=== PATIENT | female | born 1930 | race Caucasian/White ===

== ENCOUNTER 2017-03-08 05:57 | Day surgery (SDC) | payer OTHER ==
[2017-03-03 13:28] VITALS: BMI 32.8
[2017-03-08 07:05] VITALS: TEMP 97.9
--- NOTE | 2017-03-08 07:42 | HP ---
Admitting History and Physical - Admission History of Present Illness: patient is a 86 y/o female with a past medical history of CAD, HTN, HLD, hypothyroidism, depression, and anxiety. Patient presents for ect, her last ect was last week at [facility]. She was recently admitted to [facility] for 6 weeks in which she had 16 ect treatmemts. She reports significant relief of depressive symptoms since starting ect. Patient denies any suicidal or homicidal ideation, visual or auditory hallucinations. History Source: Patient Limitations to Obtaining History: No Limitations - Past Medical History Cardiovascular: Yes: CAD, HTN, Hyperlipdemia Psych: Yes: Depression Endocrine: Yes: Hypothyroidism - Advance Directives Advance Directives: Yes: Living Will, Health Care Proxy - Smoking History Smoking history: Never smoked Have you smoked in the past 12 months: No - Alcohol/Substance Use Hx Alcohol Use: Yes (RARE) History of Substance Use: reports: None - Social History Usual Living Arrangement: Yes: With Spouse ADL: Independent History of Recent Travel: No Home Medications - Allergies Allergies/Adverse Reactions: Allergies Allergy/AdvReac Type Severity Reaction Status Date / Time No Known Drug Allergies Allergy Verified 03/03/17 12:59 - Home Medications Home Medications: Ambulatory Orders Bupropion HCl [Wellbutrin Xl] 300 mg PO DAILY 03/03/17 Furosemide [Lasix -] 40 mg PO DAILY 03/03/17 Labetalol HCl 100 mg PO BID 03/03/17 Levothyroxine [Synthroid -] 125 mcg PO DAILY 03/03/17 Mirtazapine 15 mg PO HS 03/03/17 Ramipril 10 mg PO DAILY 03/03/17 Rosuvastatin Calcium [Crestor] 5 mg PO DAILY 03/03/17 Spironolactone 25 mg PO DAILY 03/03/17 Family Disease History - Family Disease History Family History: Unremarkable Review of Systems - Review of Systems Constitutional: reports: No Symptoms Eyes: reports: No Symptoms HENT: reports: No Symptoms Neck: reports: No Symptoms Cardiovascular: reports: No Symptoms Respiratory: reports: No Symptoms Gastrointestinal: reports: No Symptoms Genitourinary: reports: No Symptoms Musculoskeletal: reports: No Symptoms Integumentary: reports: No Symptoms Neurological: reports: No Symptoms Endocrine: reports: No Symptoms Hematology/Lymphatic: reports: No Symptoms Psychiatric: reports: No Symptoms Physical Examination Vital Signs: Vital Signs Temperature 97.9 F 03/08/17 06:58 Pulse Rate 66 03/08/17 06:58 Respiratory Rate 18 03/08/17 06:58 Blood Pressure 134/77 03/08/17 06:58 O2 Sat by Pulse Oximetry (%) 96 03/08/17 06:58 Constitutional: Yes: Well Nourished, No Distress, Calm Eyes: Yes: WNL, Conjunctiva Clear, EOM Intact HENT: Yes: WNL, Atraumatic, Normocephalic Neck: Yes: WNL, Supple, Trachea Midline Cardiovascular: Yes: WNL, Regular Rate and Rhythm, S1, S2 Respiratory: Yes: WNL, Regular, CTA Bilaterally Gastrointestinal: Yes: WNL, Normal Bowel Sounds, Soft ...Rectal Exam: Yes: Deferred Renal/: Yes: WNL Musculoskeletal: Yes: WNL Extremities: Yes: WNL Edema: Yes Edema: LLE: 1+ ( chronic as per patient ), RLE: 1+ Peripheral Pulses WNL: Yes Peripheral Pulses: Left Radial: 4+, Right Radial: 4+, Left Doralis Pedis: 3+, Right Dorsalis Pedis: 3+, Left Femoral: 3+, Right Femoral: 3+ Integumentary: Yes: WNL Neurological: Yes: WNL, Alert, Oriented ...Motor Strength: WNL Psychiatric: Yes: WNL, Alert, Oriented Labs: reviewed 02/01 Imaging - Results EKG: Image Reviewed, Other (nsr) Assessment/Plan patient is a 86 y/o female that presents for ect, labs and ekg reviewed patient is medically optimized for procedure informed consent, risks/benefits to be obtained by Dr Montgomery
[2017-03-08] MEDS ORDERED: KETAMINE HCL 500 MG/10 ML VIAL ONE (08:23)
[2017-03-08 10:01] VITALS: BP 135/66; PULSE 74
== END 2017-03-08 10:15 | disposition home or self-care (01) ==
LOC: FECT 05:57
PROVIDERS: ATTEND Psychiatry & Neurology Psychiatry
PROC: GZB4ZZZ Other Electroconvulsive Therapy (ICD-10-PCS; principal; 2017-03-08 08:00)
DX: F33.2 Major depressive disorder, recurrent severe without psychotic features (principal)
CPT/HCPCS: 90870; 94760

== ENCOUNTER 2017-03-16 05:46 | Day surgery (SDC) | payer OTHER ==
[2017-03-09 11:12] VITALS: BMI 32.8
[2017-03-16 06:18] VITALS: TEMP 98.1
[2017-03-16] MEDS ORDERED: KETAMINE HCL 500 MG/10 ML VIAL ONE (07:01)
[2017-03-16 08:35] VITALS: BP 139/60; PULSE 74
== END 2017-03-16 08:30 | disposition home or self-care (01) ==
LOC: FECT 05:46
PROVIDERS: ATTEND Psychiatry & Neurology Psychiatry
PROC: GZB4ZZZ Other Electroconvulsive Therapy (ICD-10-PCS; principal; 2017-03-16 07:45)
DX: F33.2 Major depressive disorder, recurrent severe without psychotic features (principal)
CPT/HCPCS: 90870; 94760

== ENCOUNTER 2017-03-23 05:46 | Day surgery (SDC) | payer OTHER ==
[2017-03-16 17:13] VITALS: BMI 32.8
[2017-03-23] MEDS ORDERED: KETAMINE HCL 500 MG/10 ML VIAL ONE (07:22)
[2017-03-23 13:58] VITALS: TEMP 98
[2017-03-23 14:05] VITALS: BP 145/63; PULSE 74
== END 2017-03-23 09:25 | disposition home or self-care (01) ==
LOC: FECT 05:46
PROVIDERS: ATTEND Psychiatry & Neurology Psychiatry
PROC: GZB4ZZZ Other Electroconvulsive Therapy (ICD-10-PCS; principal; 2017-03-23 07:30)
DX: F33.2 Major depressive disorder, recurrent severe without psychotic features (principal)
CPT/HCPCS: 90870; 94760

== ENCOUNTER 2017-04-26 05:39 | Day surgery (SDC) | payer OTHER ==
--- NOTE | 2017-04-26 08:00 | HP ---
Admitting History and Physical - Admission History of Present Illness: Patient is a 86 y/o female with a past medical history of CAD, HTN, HLD, [id number]/, depression and anxiety. Patient presents for ect, her last ect 03/23/17. patient reports feeling a significant improvement in depression since starting ect. She denies any changes to medications. Patient denies any recent illnesses or hospitalizations, Patient denies any suicidal or homicidal ideation, visual or auditory hallucinations. History Source: Patient - Past Medical History Cardiovascular: Yes: CAD, HTN, Hyperlipdemia Psych: Yes: Depression Endocrine: Yes: Hypothyroidism - Smoking History Smoking history: Never smoked Have you smoked in the past 12 months: No - Alcohol/Substance Use Hx Alcohol Use: Yes (RARE) History of Substance Use: reports: None - Social History ADL: Independent History of Recent Travel: No Home Medications - Allergies Allergies/Adverse Reactions: Allergies Allergy/AdvReac Type Severity Reaction Status Date / Time No Known Drug Allergies Allergy Verified 03/03/17 12:59 - Home Medications Home Medications: Ambulatory Orders Bupropion HCl [Wellbutrin Xl] 300 mg PO DAILY 03/03/17 Furosemide [Lasix -] 40 mg PO DAILY 03/03/17 Labetalol HCl 100 mg PO BID 03/03/17 Levothyroxine [Synthroid -] 125 mcg PO DAILY 03/03/17 Mirtazapine 15 mg PO HS 03/03/17 Ramipril 10 mg PO DAILY 03/03/17 Rosuvastatin Calcium [Crestor] 5 mg PO DAILY 03/03/17 Spironolactone 25 mg PO DAILY 03/03/17 Family Disease History - Family Disease History Family History: Denies Review of Systems - Review of Systems Constitutional: reports: No Symptoms Eyes: reports: No Symptoms HENT: reports: No Symptoms Neck: reports: No Symptoms Cardiovascular: reports: No Symptoms Respiratory: reports: No Symptoms Gastrointestinal: reports: No Symptoms Genitourinary: reports: No Symptoms Musculoskeletal: reports: No Symptoms Neurological: reports: No Symptoms Endocrine: reports: No Symptoms Hematology/Lymphatic: reports: No Symptoms Psychiatric: reports: No Symptoms Physical Examination Constitutional: Yes: Well Nourished, No Distress, Calm Eyes: Yes: WNL, Conjunctiva Clear, EOM Intact HENT: Yes: WNL, Atraumatic, Normocephalic Neck: Yes: WNL, Supple, Trachea Midline Cardiovascular: Yes: WNL, Regular Rate and Rhythm, S1, S2 Respiratory: Yes: WNL, Regular, CTA Bilaterally Gastrointestinal: Yes: WNL, Normal Bowel Sounds, Soft ...Rectal Exam: Yes: Deferred Renal/: Yes: WNL Breast(s): Yes: WNL Musculoskeletal: Yes: WNL Extremities: Yes: WNL Edema: No Peripheral Pulses WNL: Yes Peripheral Pulses: Left Radial: 4+, Right Radial: 4+, Left Doralis Pedis: 3+, Right Dorsalis Pedis: 3+, Left Femoral: 3+, Right Femoral: 3+ Integumentary: Yes: WNL Neurological: Yes: WNL, Alert, Oriented ...Motor Strength: WNL Psychiatric: Yes: WNL, Alert, Oriented Labs: reviewed 02/01 Imaging - Results EKG: Image Reviewed, Other (nsr) Assessment/Plan patient is a 86 y/o female that presents for ect, labs and ekg reviewed patient is medically optimized for procedure informed consent, risks/benefits to be obtained by Dr Montgomery.
[2017-04-26 08:17] VITALS: BMI 32.8
[2017-04-26] MEDS ORDERED: KETAMINE HCL 500 MG/10 ML VIAL ONE (09:12)
[2017-04-26] MEDS ORDERED: ONDANSETRON 4 MG/2 ML VIAL IVPUSH PRN (10:33)
[2017-04-26 10:38] VITALS: TEMP 98
[2017-04-26 10:40] VITALS: BP 148/70; PULSE 72
[2017-04-26] MEDS ORDERED: LACTATED RINGERS SOLUTION 1,000 ML IV SCH (10:45)
== END 2017-04-26 10:45 | disposition home or self-care (01) ==
LOC: FECT 05:39
PROVIDERS: ATTEND Psychiatry & Neurology Psychiatry
PROC: GZB4ZZZ Other Electroconvulsive Therapy (ICD-10-PCS; principal; 2017-04-26 07:30)
DX: F33.2 Major depressive disorder, recurrent severe without psychotic features (principal)
CPT/HCPCS: 90870; 94760

== ENCOUNTER → 2017-05-24 | Day surgery (SDC) | payer OTHER ==
[2017-05-16 13:28] VITALS: BMI 32.8
[~2017-05-24] MED LIST: KETAMINE HCL 500 MG/10 ML VIAL ONE
[2017-05-24 08:16] VITALS: TEMP 98.1
[2017-05-24 08:36] VITALS: BP 139/63; PULSE 65
== END | disposition home or self-care (01) ==
LOC: FECT 05:41
PROVIDERS: ATTEND Psychiatry & Neurology Psychiatry
PROC: GZB4ZZZ Other Electroconvulsive Therapy (ICD-10-PCS; principal; 2017-05-24 07:00)
DX: F33.2 Major depressive disorder, recurrent severe without psychotic features (principal)
CPT/HCPCS: 90870; 94760

== ENCOUNTER 2017-06-21 05:39 | Day surgery (SDC) | payer OTHER ==
--- NOTE | 2017-06-21 07:20 | HP ---
Admitting History and Physical - Admission History of Present Illness: Patient is a 86 y/o female with a past medical history of of CAD, HTN, HLD, hypothyroidism, depression and anxiety. Patient presents for ect, her last ect was 05/24/17. Patient reports feeling an improvement in depressive symptoms since starting ect. patient denies any recent illnesses or hospitalizations. She reports her hctz was discontinued and she was started on lasix 40 mg daily for bilateral lower extremity edema. Patient denies any chest pain, shortness of breath, or dyspnea upon exertion. patient denies any suicidal or homicidal ideation, visual or auditory hallucinations. History Source: Patient Limitations to Obtaining History: No Limitations - Past Medical History Cardiovascular: Yes: CAD, HTN, Hyperlipdemia Psych: Yes: Depression Endocrine: Yes: Hypothyroidism - Smoking History Smoking history: Never smoked Have you smoked in the past 12 months: No - Alcohol/Substance Use Hx Alcohol Use: Yes (RARE) History of Substance Use: reports: None - Social History Usual Living Arrangement: Yes: With Spouse ADL: Independent History of Recent Travel: No Home Medications - Allergies Allergies/Adverse Reactions: Allergies Allergy/AdvReac Type Severity Reaction Status Date / Time No Known Drug Allergies Allergy Verified 04/26/17 08:17 - Home Medications Home Medications: Ambulatory Orders Bupropion HCl [Wellbutrin Xl] 300 mg PO DAILY 03/03/17 Furosemide [Lasix -] 40 mg PO DAILY 03/03/17 Labetalol HCl 100 mg PO BID 03/03/17 Levothyroxine [Synthroid -] 125 mcg PO DAILY 03/03/17 Mirtazapine 15 mg PO HS 03/03/17 Ramipril 10 mg PO DAILY 03/03/17 Rosuvastatin Calcium [Crestor] 5 mg PO DAILY 03/03/17 Spironolactone 25 mg PO DAILY 03/03/17 Family Disease History - Family Disease History Family History: Denies Review of Systems - Review of Systems Constitutional: reports: No Symptoms Eyes: reports: No Symptoms HENT: reports: No Symptoms Neck: reports: No Symptoms Cardiovascular: reports: No Symptoms Respiratory: reports: No Symptoms Gastrointestinal: reports: No Symptoms Genitourinary: reports: No Symptoms Musculoskeletal: reports: No Symptoms Integumentary: reports: No Symptoms Neurological: reports: No Symptoms Endocrine: reports: No Symptoms Hematology/Lymphatic: reports: No Symptoms Psychiatric: reports: No Symptoms Physical Examination Constitutional: Yes: Well Nourished, No Distress, Calm Eyes: Yes: WNL, Conjunctiva Clear, EOM Intact HENT: Yes: WNL, Atraumatic, Normocephalic Neck: Yes: WNL, Supple, Trachea Midline Cardiovascular: Yes: WNL, Regular Rate and Rhythm, S1, S2 Respiratory: Yes: WNL, Regular, CTA Bilaterally Gastrointestinal: Yes: WNL, Normal Bowel Sounds, Soft ...Rectal Exam: Yes: Deferred Renal/: Yes: WNL Musculoskeletal: Yes: WNL Edema: Yes Edema: LLE: 1+, RLE: 1+ Peripheral Pulses WNL: Yes Peripheral Pulses: Left Radial: 4+, Right Radial: 4+, Left Doralis Pedis: 3+, Right Dorsalis Pedis: 3+, Left Femoral: 3+, Right Femoral: 3+ Integumentary: Yes: WNL Neurological: Yes: WNL, Alert, Oriented ...Motor Strength: WNL Psychiatric: Yes: WNL, Alert, Oriented Labs: reviewed 02/02 Imaging - Results EKG: Image Reviewed, Other (nsr) Assessment/Plan patient is a 86 y/o female that presents for ect, labs and ekg reviewed patient is medically optimized for procedure informed consent, risks/benefits to be obtained by Dr Montgomery.
[2017-06-21 07:41] VITALS: BMI 32.8
[2017-06-21] MEDS ORDERED: KETAMINE HCL 500 MG/10 ML VIAL ONE (08:04)
[2017-06-21] MEDS ORDERED: ONDANSETRON 4 MG/2 ML VIAL IVPUSH PRN (08:24)
[2017-06-21 09:36] VITALS: TEMP 98.5
[2017-06-21 10:03] VITALS: BP 137/77; PULSE 66
== END 2017-06-21 09:40 | disposition home or self-care (01) ==
LOC: FECT 05:39
PROVIDERS: ATTEND Psychiatry & Neurology Psychiatry
PROC: GZB4ZZZ Other Electroconvulsive Therapy (ICD-10-PCS; principal; 2017-06-21 07:15)
DX: F33.2 Major depressive disorder, recurrent severe without psychotic features (principal)
CPT/HCPCS: 90870; 94760

== ENCOUNTER 2017-07-19 05:41 | Day surgery (SDC) | payer OTHER ==
[2017-07-12 15:53] VITALS: BMI 32.8
[2017-07-19] MEDS ORDERED: oxyCODONE HCL 5 MG TABLET PO PRN (08:04)
[2017-07-19] MEDS ORDERED: KETAMINE HCL 500 MG/10 ML VIAL ONE (08:39)
[2017-07-19 10:11] VITALS: TEMP 97.5
[2017-07-19 10:13] VITALS: BP 141/71; PULSE 64
== END 2017-07-19 10:00 | disposition home or self-care (01) ==
LOC: FECT 05:41
PROVIDERS: ATTEND Psychiatry & Neurology Psychiatry
PROC: GZB4ZZZ Other Electroconvulsive Therapy (ICD-10-PCS; principal; 2017-07-19 07:00)
DX: F33.2 Major depressive disorder, recurrent severe without psychotic features (principal)
CPT/HCPCS: 90870; 94760

== ENCOUNTER → 2017-10-27 | Day surgery (SDC) | payer OTHER ==
[2017-10-25 10:44] VITALS: BMI 32.8
[~2017-10-27] MED LIST changes: +ONDANSETRON 4 MG/2 ML VIAL IVPUSH PRN
--- NOTE | 2017-10-27 07:32 | HP ---
Admitting History and Physical - Admission History of Present Illness: Patient is a 86 y/o female, with a past medical history of CAD, HTN, HLD, hypothyroidism, depression and anxiety. Patient presents for ect. She has been receiving ect since 2017, her last ect was 07/19/17. She reports ongoing feelings of depression. Patient denies any suicidal or homicidal ideation, visual or auditory hallucinations. Patient does report compliance with prescribed medication. She denies any recent illnesses or hospitalizations. History Source: Patient Limitations to Obtaining History: No Limitations - Past Medical History Cardiovascular: Yes: CAD, HTN, Hyperlipdemia Psych: Yes: Depression Endocrine: Yes: Hypothyroidism - Smoking History Smoking history: Never smoked Have you smoked in the past 12 months: No - Alcohol/Substance Use Hx Alcohol Use: Yes (RARE) History of Substance Use: reports: None - Social History Usual Living Arrangement: Yes: With Spouse ADL: Independent History of Recent Travel: No Home Medications - Allergies Allergies/Adverse Reactions: Allergies Allergy/AdvReac Type Severity Reaction Status Date / Time No Known Drug Allergies Allergy Verified 04/26/17 08:17 - Home Medications Home Medications: Ambulatory Orders Bupropion HCl [Wellbutrin Xl] 300 mg PO DAILY 03/03/17 Furosemide [Lasix -] 40 mg PO DAILY 03/03/17 Labetalol HCl 100 mg PO BID 03/03/17 Levothyroxine [Synthroid -] 125 mcg PO DAILY 03/03/17 Mirtazapine 15 mg PO HS 03/03/17 Ramipril 10 mg PO DAILY 03/03/17 Rosuvastatin Calcium [Crestor] 5 mg PO HS 03/03/17 Spironolactone 25 mg PO DAILY 03/03/17 Family Disease History - Family Disease History Family History: Denies Review of Systems - Review of Systems Constitutional: reports: No Symptoms Eyes: reports: No Symptoms HENT: reports: No Symptoms Neck: reports: No Symptoms Cardiovascular: reports: No Symptoms Respiratory: reports: No Symptoms Gastrointestinal: reports: No Symptoms Genitourinary: reports: No Symptoms Musculoskeletal: reports: No Symptoms Integumentary: reports: No Symptoms Neurological: reports: No Symptoms Endocrine: reports: No Symptoms Hematology/Lymphatic: reports: No Symptoms Psychiatric: reports: Depression Physical Examination Constitutional: Yes: Well Nourished, No Distress, Calm Eyes: Yes: WNL, Conjunctiva Clear, EOM Intact HENT: Yes: WNL, Atraumatic, Normocephalic Neck: Yes: WNL, Supple, Trachea Midline Cardiovascular: Yes: WNL, Regular Rate and Rhythm, S1, S2 Respiratory: Yes: WNL, Regular, CTA Bilaterally Gastrointestinal: Yes: WNL, Normal Bowel Sounds, Soft ...Rectal Exam: Yes: Deferred Renal/: Yes: WNL Musculoskeletal: Yes: WNL Extremities: Yes: WNL Edema: No Peripheral Pulses WNL: Yes Peripheral Pulses: Left Radial: 4+, Right Radial: 4+, Left Doralis Pedis: 3+, Right Dorsalis Pedis: 3+, Left Femoral: 3+, Right Femoral: 3+ Integumentary: Yes: WNL Neurological: Yes: WNL, Alert, Oriented ...Motor Strength: WNL Psychiatric: Yes: WNL, Alert, Oriented Labs: CBC WBC 5.9 K/mm3 (4.0-10.8) 10/27/17 06:00 RBC 4.13 M/mm3 (3.60-5.2) 10/27/17 06:00 Hgb 12.1 GM/dl (10.7-15.3) 10/27/17 06:00 Hct 35.2 % (32.4-45.2) 10/27/17 06:00 MCV 85.4 fl (80-96) 10/27/17 06:00 MCH 29.3 pg (25.7-33.7) 10/27/17 06:00 MCHC 34.4 g/dl (32.0-36.0) 10/27/17 06:00 RDW 14.5 % (11.6-15.6) 10/27/17 06:00 Plt Count 208 K/MM3 (134-434) 10/27/17 06:00 MPV 7.2 fl (7.5-11.1) L 10/27/17 06:00 Absolute Neuts (auto) 4.0 # 10/27/17 06:00 Neutrophils % 68.6 % (42.8-82.8) 10/27/17 06:00 Lymphocytes % 19.7 % (8-40) 10/27/17 06:00 Monocytes % 7.6 % (3.8-10.2) 10/27/17 06:00 Eosinophils % 3.3 % (0-4.5) 10/27/17 06:00 Basophils % 0.8 % (0-2.0) 10/27/17 06:00 CMP Sodium 137 mmol/L (136-145) 10/27/17 06:00 Potassium 4.0 mmol/L (3.5-5.1) 10/27/17 06:00 Chloride 102 mmol/L (98-107) 10/27/17 06:00 Carbon Dioxide 26 mmol/L (22-28) 10/27/17 06:00 Anion Gap 9 (8-16) 10/27/17 06:00 BUN 34 mg/dl (7-18) H 10/27/17 06:00 Creatinine 1.0 mg/dl (0.6-1.3) 10/27/17 06:00 Creat Clearance w eGFR 52.45 (>60) 10/27/17 06:00 Random Glucose 76 mg/dl (74-106) 10/27/17 06:00 Calcium 8.9 mg/dl (8.4-10.2) 10/27/17 06:00 Total Bilirubin 1.2 mg/dl (0.2-1.0) H 10/27/17 06:00 AST 14 U/L (10-42) 10/27/17 06:00 ALT 12 U/L (10-40) 10/27/17 06:00 Alkaline Phosphatase 51 U/L (32-92) 10/27/17 06:00 Total Protein 6.0 g/dl (6.4-8.3) L 10/27/17 06:00 Albumin 4.0 g/dl (3.5-5.0) 10/27/17 06:00 Imaging - Results EKG: Other (nsr) Assessment/Plan patient is a 86y/o female, that presents for ect labs and ekg reviewed patient is medically optimized for procedure
[2017-10-27 07:55] VITALS: BP 141/68; PULSE 61; TEMP 97.6
[2017-10-27 08:31] LABS: BASO % 0.8 % (0-2.0); EOS % 3.3 % (0-4.5); HEMATOCRIT 35.2 % (32.4-45.2); HEMOGLOBIN 12.1 GM/dl (10.7-15.3); LYMPH % 19.7 % (8-40); MCH 29.3 pg (25.7-33.7); MCHC 34.4 g/dl (32.0-36.0); MEAN CELL VOLUME 85.4 fl (80-96); MEAN PLT VOLUME 7.2 fl (7.5-11.1); MONO % 7.6 % (3.8-10.2); NEUT % 68.6 % (42.8-82.8); PLATELET COUNT 208 K/MM3 (134-434); RBC 4.13 M/mm3 (3.60-5.2); RDW 14.5 % (11.6-15.6); WHITE BLOOD COUNT 5.9 K/mm3 (4.0-10.8)
[2017-10-27 08:59] LABS: ALK PHOS 51 U/L (32-92); ANION GAP 9 (8-16); BILIRUBIN,TOTAL 1.2 mg/dl (0.2-1.0); BLOOD UREA NITROGEN 34 mg/dl (7-18); CALCIUM 8.9 mg/dl (8.4-10.2); CHLORIDE 102 mmol/L (98-107); CO2 26 mmol/L (22-28); GLUCOSE,RANDOM 76 mg/dl (74-106); SGOT/AST 14 U/L (10-42); SGPT/ALT 12 U/L (10-40); SODIUM 137 mmol/L (136-145)
--- NOTE | 2017-10-31 20:13 | EKG ---
Test Reason : Blood Pressure : / mmHG Vent. Rate : 064 BPM Atrial Rate : 064 BPM P-R Int : 186 ms QRS Dur : 090 ms QT Int : 438 ms P-R-T Axes : 052 -18 019 degrees QTc Int : 451 ms SINUS RHYTHM WITH PREMATURE VENTRICULAR COMPLEXES OR FUSION COMPLEXES ABNORMAL ECG NO PREVIOUS ECGS AVAILABLE Confirmed by MD PAMELA, HARRISON ([id number]) on 10/31/2017 8:13:11 PM Referred By: Mook Montgomery Confirmed By:HARRISON SANTIAGO MD
== END | disposition home or self-care (01) ==
LOC: FECT 05:48
PROVIDERS: ATTEND Psychiatry & Neurology Psychiatry
PROC: GZB4ZZZ Other Electroconvulsive Therapy (ICD-10-PCS; principal; 2017-10-27)
DX: F33.2 Major depressive disorder, recurrent severe without psychotic features (principal); I10 Essential (primary) hypertension; I25.10 Atherosclerotic heart disease of native coronary artery without angina pectoris; E78.5 Hyperlipidemia, unspecified; E03.9 Hypothyroidism, unspecified; Z53.8 Procedure and treatment not carried out for other reasons
CPT/HCPCS: 36415; 80053; 85025; 93005

== ENCOUNTER 2017-11-02 05:44 | Day surgery (SDC) | payer OTHER ==
[2017-10-28 15:54] VITALS: BMI 32.8
[2017-11-02 09:51] VITALS: TEMP 98
[2017-11-02 09:56] VITALS: BP 148/70; PULSE 80
== END 2017-11-02 09:40 | disposition home or self-care (01) ==
LOC: FECT 05:44
PROVIDERS: ATTEND Psychiatry & Neurology Psychiatry
PROC: GZB4ZZZ Other Electroconvulsive Therapy (ICD-10-PCS; principal; 2017-11-02 08:15)
DX: F33.2 Major depressive disorder, recurrent severe without psychotic features (principal)
CPT/HCPCS: 90870; 94760

== ENCOUNTER 2017-11-07 05:56 | Day surgery (SDC) | payer OTHER ==
[2017-11-04 12:49] VITALS: BMI 32.8
[2017-11-07 06:45] VITALS: TEMP 98.8
[2017-11-07] MEDS ORDERED: ONDANSETRON 4 MG/2 ML VIAL IVPUSH PRN (07:25)
[2017-11-07 08:55] VITALS: BP 145/65; PULSE 69
== END 2017-11-07 08:55 | disposition home or self-care (01) ==
LOC: FECT 05:56
PROVIDERS: ATTEND Psychiatry & Neurology Psychiatry
PROC: GZB4ZZZ Other Electroconvulsive Therapy (ICD-10-PCS; principal; 2017-11-07 09:15)
DX: F33.2 Major depressive disorder, recurrent severe without psychotic features (principal)
CPT/HCPCS: 90870; 94760

== ENCOUNTER 2017-11-10 05:43 | Day surgery (SDC) | payer OTHER ==
[2017-11-09 14:53] VITALS: BMI 32.8
[2017-11-10] MEDS ORDERED: ONDANSETRON 4 MG/2 ML VIAL IVPUSH PRN (07:18)
[2017-11-10 10:19] VITALS: TEMP 98.1
[2017-11-10 10:36] VITALS: BP 141/69; PULSE 74
== END 2017-11-10 10:40 | disposition home or self-care (01) ==
LOC: FECT 05:43
PROVIDERS: ATTEND Psychiatry & Neurology Psychiatry
PROC: GZB4ZZZ Other Electroconvulsive Therapy (ICD-10-PCS; principal; 2017-11-10 08:15)
DX: F33.2 Major depressive disorder, recurrent severe without psychotic features (principal)
CPT/HCPCS: 36415; 80053; 81003; 82550; 83690; 84484; 85025; 87086; 90870; 93005; 94760; 99282-25

== ENCOUNTER 2017-11-10 11:45 | Emergency (ER) | payer OTHER ==
[2017-11-10 11:58] VITALS: BP 148/81; PULSE 72; TEMP 98.7; BMI 32.1
--- NOTE | 2017-11-10 12:10 | PDOC ---
History of Present Illness - General Chief Complaint: Nausea Stated Complaint: NAUSEA AFTER ECT THIS AM Time Seen by Provider: 11/10/17 11:58 History Source: Patient Exam Limitations: No Limitations - History of Present Illness Initial Comments: 86 yo F history HTN, depression, hypothyroid, HL presents with vomiting x1 after ECT. She states she had ECT this morning. As per , she usually appears well afterwards, but today she did not look well. They went to get lunch afterwards, at which time she had one episode of vomiting after drinking coffee and attempting to eat a corn muffin. She denies any abdominal pain, N/V/D , f/c at present. Past History - Past Medical History Allergies/Adverse Reactions: Allergies Allergy/AdvReac Type Severity Reaction Status Date / Time No Known Drug Allergies Allergy Verified 11/10/17 11:48 Home Medications: Ambulatory Orders Bupropion HCl [Wellbutrin Xl] 300 mg PO DAILY 03/03/17 Furosemide [Lasix -] 40 mg PO DAILY 03/03/17 Labetalol HCl 100 mg PO BID 03/03/17 Levothyroxine [Synthroid -] 125 mcg PO DAILY 03/03/17 Mirtazapine 15 mg PO HS 03/03/17 Ramipril 10 mg PO DAILY 03/03/17 Rosuvastatin Calcium [Crestor] 5 mg PO DAILY 03/03/17 Spironolactone 25 mg PO DAILY 03/03/17 Cancer: No Cardiac Disorders: Yes COPD: No Diabetes: No Hypercholesterolemia: Yes Psychiatric Problems: Yes (DEPRESSION) Seizures: No Thyroid Disease: Yes - Suicide/Smoking/Psychosocial Hx Smoking History: Never smoked Have you smoked in the past 12 months: No Information on smoking cessation initiated: No Hx Alcohol Use: No Drug/Substance Use Hx: No Substance Use Type: Alcohol Hx Substance Use Treatment: No Review of Systems - Review of Systems Able to Perform ROS?: Yes Comments:: GENERAL/CONSTITUTIONAL: No fever or chills. No weakness. HEAD, EYES, EARS, NOSE AND THROAT: No change in vision. No ear pain or discharge. No sore throat. CARDIOVASCULAR: No chest pain or shortness of breath. RESPIRATORY: No cough, wheezing, or hemoptysis. GASTROINTESTINAL: +Vomiting x1. No diarrhea or constipation. GENITOURINARY: No dysuria, frequency, or change in urination. MUSCULOSKELETAL: No joint or muscle swelling or pain. No neck or back pain. SKIN: No rash NEUROLOGIC: No headache, vertigo, loss of consciousness, or change in strength/ sensation. ENDOCRINE: No increased thirst. No abnormal weight change. HEMATOLOGIC/LYMPHATIC: No anemia, easy bleeding, or history of blood clots. ALLERGIC/IMMUNOLOGIC: No hives or skin allergy. *Physical Exam - Vital Signs Last Vital Signs Temp Pulse Resp BP Pulse Ox 98.7 F 72 18 148/81 97 11/10/17 11:46 11/10/17 11:46 11/10/17 11:46 11/10/17 11:46 11/10/17 11:46 - Physical Exam Comments: GENERAL: Awake, alert, and fully oriented, in no acute distress HEAD: No signs of trauma EYES: PERRLA, EOMI, sclera anicteric, conjunctiva clear ENT: Auricles normal inspection, hearing grossly normal, nares patent, oropharynx clear without exudates. Dry mucosa NECK: Normal ROM, supple, no lymphadenopathy, JVD, or masses LUNGS: Breath sounds equal, clear to auscultation bilaterally. No wheezes, and no crackles HEART: Regular rate and rhythm, normal S1 and S2, no murmurs, rubs or gallops ABDOMEN: Soft, nontender, normoactive bowel sounds. No guarding, no rebound. No masses EXTREMITIES: Normal range of motion, no edema. No clubbing or cyanosis. No cords, erythema, or tenderness NEUROLOGICAL: Cranial nerves II through XII grossly intact. Normal speech, normal gait SKIN: Warm, Dry, normal turgor, no rashes or lesions noted. Heart Score/ECG Review - ECG Impressions Comment:: EKG read 12:21- NSR 67 bpm, no acute ST/T changes. +T wave inversions precordial leads, similar to prior. ED Treatment Course - LABORATORY CBC & Chemistry Diagram: 11/10/17 12:43 11/10/17 12:43 Medical Decision Making - Medical Decision Making 11/10/17 13:07 Chart reviewed, it appears that she received zofran x2 in ECT. No signs of acute abdomen. Will obtain labs, UA, reassess. EKG is unchanged from prior. *DC/Admit/Observation/Transfer Diagnosis at time of Disposition: Vomiting Qualifiers: Vomiting type: unspecified Vomiting Intractability: non-intractable Nausea presence: with nausea Qualified Code(s): R11.2 - Nausea with vomiting, unspecified - Discharge Dispostion Disposition: HOME Condition at time of disposition: Stable Decision to Admit order: No - Referrals - Patient Instructions - Post Discharge Activity
[2017-11-10 13:09] LABS: BASO % 0.3 % (0-2.0); EOS % 1.4 % (0-4.5); HEMATOCRIT 36.5 % (32.4-45.2); HEMOGLOBIN 12.4 GM/dl (10.7-15.3); LYMPH % 7.1 % (8-40); MCH 29.1 pg (25.7-33.7); MEAN CELL VOLUME 85.6 fl (80-96); MEAN PLT VOLUME 7.4 fl (7.5-11.1); MONO % 4.3 % (3.8-10.2); NEUT % 86.9 % (42.8-82.8); PLATELET COUNT 233 K/MM3 (134-434); RBC 4.26 M/mm3 (3.60-5.2); RDW 14.8 % (11.6-15.6); WHITE BLOOD COUNT 8.5 K/mm3 (4.0-10.8)
[2017-11-10 13:11] LABS: URINE APPEARANCE Clear; URINE BILIRUBIN Negative (NEGATIVE); URINE COLOR Yellow; URINE GLUCOSE (UA) Negative (NEGATIVE); URINE KETONE Negative (NEGATIVE); URINE LEUK ESTERASE Negative (NEGATIVE); URINE NITRITE Negative (NEGATIVE); URINE PROTEIN Negative (NEGATIVE); URINE UROBILINOGEN 0.2 (0.2-1.0)
[2017-11-10 13:33] LABS: ALK PHOS 55 U/L (32-92); ANION GAP 8 (8-16); BLOOD UREA NITROGEN 30 mg/dl (7-18); CALCIUM 9.1 mg/dl (8.4-10.2); CHLORIDE 106 mmol/L (98-107); CO2 25 mmol/L (22-28); CREATININE 0.9 mg/dl (0.6-1.3); GLUCOSE,RANDOM 125 mg/dl (74-106); POTASSIUM 4.2 mmol/L (3.5-5.1); SGOT/AST 15 U/L (10-42); SGPT/ALT 15 U/L (10-40); SODIUM 139 mmol/L (136-145); TOT PROT 6.4 g/dl (6.4-8.3)
[2017-11-10 14:38] LABS: LIPASE 154 U/L (73-393)
--- NOTE | 2017-11-11 14:13 | EKG ---
Test Reason : Blood Pressure : / mmHG Vent. Rate : 067 BPM Atrial Rate : 067 BPM P-R Int : 148 ms QRS Dur : 074 ms QT Int : 384 ms P-R-T Axes : 029 -21 -40 degrees QTc Int : 405 ms POOR DATA QUALITY, INTERPRETATION MAY BE ADVERSELY AFFECTED NORMAL SINUS RHYTHM ABNORMAL ECG WHEN COMPARED WITH ECG OF 27-OCT-2017 07:14, FUSION COMPLEXES ARE NO LONGER PRESENT PREMATURE VENTRICULAR COMPLEXES ARE NO LONGER PRESENT NONSPECIFIC T WAVE ABNORMALITY, WORSE IN LATERAL LEADS Confirmed by TOMAS PEREYRA, ALEKSANDER ([id number]) on 11/11/2017 2:12:59 PM Referred By: ALIDA LOCO Confirmed By:ALEKSANDER MARIN MD
== END 2017-11-10 14:52 | disposition home or self-care (01) ==
LOC: FER 11:45
DX: R11.2 Nausea with vomiting, unspecified (principal); I10 Essential (primary) hypertension; F32.9 Major depressive disorder, single episode, unspecified; E03.9 Hypothyroidism, unspecified; E78.5 Hyperlipidemia, unspecified
CPT/HCPCS: 36415; 80053; 81003; 82550; 83690; 84484; 85025; 87086; 93005; 99282-25

== ENCOUNTER 2017-11-14 05:34 | Day surgery (SDC) | payer OTHER ==
[2017-11-11 12:03] VITALS: BMI 32.8
[2017-11-14] MEDS ORDERED: KETAMINE HCL 500 MG/10 ML VIAL ONE (08:40)
[2017-11-14 09:48] VITALS: TEMP 98.3
[2017-11-14 10:20] VITALS: BP 128/74; PULSE 72
== END 2017-11-14 10:22 | disposition home or self-care (01) ==
LOC: FECT 05:34
PROVIDERS: ATTEND Psychiatry & Neurology Psychiatry
PROC: GZB4ZZZ Other Electroconvulsive Therapy (ICD-10-PCS; principal; 2017-11-14 08:45)
DX: F33.2 Major depressive disorder, recurrent severe without psychotic features (principal)
CPT/HCPCS: 90870; 94760

== ENCOUNTER 2017-11-17 05:32 | Day surgery (SDC) | payer OTHER ==
[2017-11-17 07:41] VITALS: BMI 32.8
[2017-11-17 09:41] VITALS: TEMP 98.9
[2017-11-17 09:58] VITALS: BP 156/66; PULSE 76
== END 2017-11-17 10:00 | disposition home or self-care (01) ==
LOC: FECT 05:32
PROVIDERS: ATTEND Psychiatry & Neurology Psychiatry
PROC: GZB4ZZZ Other Electroconvulsive Therapy (ICD-10-PCS; principal; 2017-11-17 07:45)
DX: F33.2 Major depressive disorder, recurrent severe without psychotic features (principal)
CPT/HCPCS: 90870; 94760

== ENCOUNTER 2017-12-01 05:40 | Day surgery (SDC) | payer OTHER ==
[2017-12-01 07:08] VITALS: BMI 32.8
--- NOTE | 2017-12-01 07:32 | HP ---
Admitting History and Physical - Admission History of Present Illness: Patient is a 87 y/o female, with a past medical history of cad, htn, hld, hypothyroidism, depression and anxiety. Patient presents for ect last ect was . patient reports feeling well, she reports a slight improvement in depressive symptoms since starting ect. patient reports compliance with prescribed medications. She denies any recent hospitalizations or illnesses. Patient denies any suicidal or homicidal ideation, visual or audiotory hallucinations. History Source: Patient Limitations to Obtaining History: No Limitations - Past Medical History Cardiovascular: Yes: CAD, HTN, Hyperlipdemia Psych: Yes: Depression Endocrine: Yes: Hypothyroidism - Smoking History Smoking history: Never smoked Have you smoked in the past 12 months: No - Alcohol/Substance Use Hx Alcohol Use: Yes (RARE) History of Substance Use: reports: None - Social History Usual Living Arrangement: Yes: With Spouse ADL: Independent History of Recent Travel: No Home Medications - Allergies Allergies/Adverse Reactions: Allergies Allergy/AdvReac Type Severity Reaction Status Date / Time No Known Drug Allergies Allergy Verified 11/10/17 11:48 - Home Medications Home Medications: Ambulatory Orders Bupropion HCl [Wellbutrin Xl] 300 mg PO DAILY 03/03/17 Furosemide [Lasix -] 40 mg PO DAILY 03/03/17 Labetalol HCl 100 mg PO BID 03/03/17 Mirtazapine 15 mg PO HS 03/03/17 Ramipril 10 mg PO DAILY 03/03/17 Rosuvastatin Calcium [Crestor] 5 mg PO DAILY 03/03/17 Spironolactone 25 mg PO DAILY 03/03/17 Aspirin Coated [Ecotrin -] 81 mg PO DAILY 11/10/17 Levothyroxine [Synthroid -] 25 mcg PO DAILY 11/10/17 Family Disease History - Family Disease History Family History: Denies Review of Systems - Review of Systems Constitutional: reports: No Symptoms Eyes: reports: No Symptoms HENT: reports: No Symptoms Neck: reports: No Symptoms Cardiovascular: reports: No Symptoms Respiratory: reports: No Symptoms Gastrointestinal: reports: No Symptoms Genitourinary: reports: No Symptoms Musculoskeletal: reports: No Symptoms Integumentary: reports: No Symptoms Neurological: reports: No Symptoms Endocrine: reports: No Symptoms Hematology/Lymphatic: reports: No Symptoms Psychiatric: reports: No Symptoms Physical Examination Vital Signs: Vital Signs Temperature 98.2 F 12/01/17 07:04 Pulse Rate 59 L 12/01/17 07:04 Respiratory Rate 18 12/01/17 07:04 Blood Pressure 119/65 12/01/17 07:04 O2 Sat by Pulse Oximetry (%) 97 12/01/17 07:04 Constitutional: Yes: Well Nourished, No Distress, Calm Eyes: Yes: WNL, Conjunctiva Clear, EOM Intact HENT: Yes: WNL, Atraumatic, Normocephalic Neck: Yes: WNL, Supple, Trachea Midline Cardiovascular: Yes: WNL, Regular Rate and Rhythm, S1, S2 Respiratory: Yes: WNL, Regular, CTA Bilaterally Gastrointestinal: Yes: WNL, Normal Bowel Sounds, Soft ...Rectal Exam: Yes: Deferred Renal/: Yes: WNL Musculoskeletal: Yes: WNL Extremities: Yes: WNL Edema: No Peripheral Pulses WNL: Yes Peripheral Pulses: Left Radial: 4+, Right Radial: 4+, Left Doralis Pedis: 3+, Right Dorsalis Pedis: 3+, Left Femoral: 3+, Right Femoral: 3+ Integumentary: Yes: WNL Neurological: Yes: WNL, Alert, Oriented ...Motor Strength: WNL Labs: reviewed 11/10/17 Imaging - Results EKG: Other (nsr non specific t wave abnormality) Assessment/Plan patient is a 87 y/o female that presents for ect, labs and ekg reviewed patient is medically optimized for procedure informed consent, risks/benefits to be obtained by Dr Montgomery
[2017-12-01] MEDS ORDERED: KETAMINE HCL 500 MG/10 ML VIAL ONE (07:52)
[2017-12-01 08:20] VITALS: TEMP 98
[2017-12-01 09:13] VITALS: BP 147/72; PULSE 68
== END 2017-12-01 09:15 | disposition home or self-care (01) ==
LOC: FECT 05:40
PROVIDERS: ATTEND Psychiatry & Neurology Psychiatry
PROC: GZB4ZZZ Other Electroconvulsive Therapy (ICD-10-PCS; principal; 2017-12-01 07:30)
DX: F33.2 Major depressive disorder, recurrent severe without psychotic features (principal)
CPT/HCPCS: 90870; 94760

== ENCOUNTER 2017-12-05 05:40 | Day surgery (SDC) | payer OTHER ==
[2017-12-01 11:08] VITALS: BMI 32.8
[2017-12-05 08:56] VITALS: TEMP 98.1
[2017-12-05 09:20] VITALS: BP 133/66; PULSE 67
== END 2017-12-05 09:20 | disposition home or self-care (01) ==
LOC: FECT 05:40
PROVIDERS: ATTEND Psychiatry & Neurology Psychiatry
PROC: GZB4ZZZ Other Electroconvulsive Therapy (ICD-10-PCS; principal; 2017-12-05 08:15)
DX: F33.2 Major depressive disorder, recurrent severe without psychotic features (principal)
CPT/HCPCS: 90870; 94760

== ENCOUNTER 2017-12-13 05:40 | Day surgery (SDC) | payer OTHER ==
[2017-12-01 11:12] VITALS: BMI 32.8
[2017-12-13] MEDS ORDERED: ONDANSETRON 4 MG/2 ML VIAL IVPUSH PRN (07:12)
[2017-12-13] MEDS ORDERED: LACTATED RINGERS SOLUTION 1,000 ML IV SCH (07:15)
[2017-12-13 08:48] VITALS: PULSE 71; TEMP 98
[2017-12-13 09:16] VITALS: BP 126/72
== END 2017-12-13 09:32 | disposition home or self-care (01) ==
LOC: FECT 05:40
PROVIDERS: ATTEND Psychiatry & Neurology Psychiatry
PROC: GZB4ZZZ Other Electroconvulsive Therapy (ICD-10-PCS; principal; 2017-12-13 07:00)
DX: F33.2 Major depressive disorder, recurrent severe without psychotic features (principal)
CPT/HCPCS: 90870; 94760

== ENCOUNTER 2017-12-20 05:48 | Day surgery (SDC) | payer OTHER ==
[2017-12-13 12:48] VITALS: BMI 32.8
[2017-12-20] MEDS ORDERED: KETAMINE HCL 500 MG/10 ML VIAL ONE (09:14)
[2017-12-20 10:19] VITALS: TEMP 98
[2017-12-20 10:45] VITALS: BP 138/66; PULSE 69
== END 2017-12-20 10:50 | disposition home or self-care (01) ==
LOC: FECT 05:48
PROVIDERS: ATTEND Psychiatry & Neurology Psychiatry
PROC: GZB4ZZZ Other Electroconvulsive Therapy (ICD-10-PCS; principal; 2017-12-20 08:00)
DX: F33.2 Major depressive disorder, recurrent severe without psychotic features (principal)
CPT/HCPCS: 90870; 94760

== ENCOUNTER 2018-01-04 05:36 | Day surgery (SDC) | payer OTHER ==
[2018-01-04 06:54] VITALS: BMI 32.8
--- NOTE | 2018-01-04 07:21 | HP ---
Admitting History and Physical - Admission History of Present Illness: patient is a 87-year-old female with a past medical history of CAD, hypertension , hyperlipidemia, hypothyroidism, depression and anxiety. Patient presents for ECT her last ECT was 12/20/2017. Patient does report significant improvement in depressive symptoms starting ECT. She denies any medication changes and reports compliance with prescribed medications. Patient denies any recent illnesses or hospitalizations. Patient denies any suicidal or homicidal ideation or visual auditory hallucinations. History Source: Patient Limitations to Obtaining History: No Limitations - Past Medical History Cardiovascular: Yes: CAD, HTN, Hyperlipdemia Psych: Yes: Depression Endocrine: Yes: Hypothyroidism - Smoking History Smoking history: Never smoked Have you smoked in the past 12 months: No - Alcohol/Substance Use Hx Alcohol Use: Yes (RARE) History of Substance Use: reports: None - Social History ADL: Independent History of Recent Travel: No Home Medications - Allergies Allergies/Adverse Reactions: Allergies Allergy/AdvReac Type Severity Reaction Status Date / Time No Known Drug Allergies Allergy Verified 12/20/17 08:30 - Home Medications Home Medications: Ambulatory Orders Bupropion HCl [Wellbutrin Xl] 300 mg PO DAILY 03/03/17 Furosemide [Lasix -] 40 mg PO DAILY 03/03/17 Labetalol HCl 100 mg PO BID 03/03/17 Mirtazapine 15 mg PO HS 03/03/17 Ramipril 10 mg PO DAILY 03/03/17 Rosuvastatin Calcium [Crestor] 5 mg PO DAILY 03/03/17 Spironolactone 25 mg PO DAILY 03/03/17 Aspirin Coated [Ecotrin -] 81 mg PO DAILY 11/10/17 Levothyroxine [Synthroid -] 25 mcg PO DAILY 11/10/17 Family Disease History - Family Disease History Family History: Denies Review of Systems - Review of Systems Constitutional: reports: No Symptoms Eyes: reports: No Symptoms HENT: reports: No Symptoms Neck: reports: No Symptoms Cardiovascular: reports: No Symptoms Respiratory: reports: No Symptoms Gastrointestinal: reports: No Symptoms Genitourinary: reports: No Symptoms Musculoskeletal: reports: No Symptoms Integumentary: reports: No Symptoms Neurological: reports: No Symptoms Endocrine: reports: No Symptoms Hematology/Lymphatic: reports: No Symptoms Psychiatric: reports: No Symptoms Physical Examination Vital Signs: Vital Signs Temperature 98.1 F 01/04/18 06:51 Pulse Rate 60 01/04/18 06:51 Respiratory Rate 18 01/04/18 06:51 Blood Pressure 132/58 01/04/18 06:51 O2 Sat by Pulse Oximetry (%) 98 01/04/18 06:51 Constitutional: Yes: Well Nourished, No Distress, Calm Eyes: Yes: WNL, Conjunctiva Clear, EOM Intact HENT: Yes: WNL, Atraumatic, Normocephalic Neck: Yes: WNL, Supple, Trachea Midline Cardiovascular: Yes: WNL, Regular Rate and Rhythm, S1, S2 Respiratory: Yes: WNL, Regular, CTA Bilaterally Gastrointestinal: Yes: WNL, Normal Bowel Sounds, Soft ...Rectal Exam: Yes: Deferred Renal/: Yes: WNL Musculoskeletal: Yes: WNL Extremities: Yes: WNL Edema: No Peripheral Pulses WNL: Yes Peripheral Pulses: Left Radial: 4+, Right Radial: 4+, Left Doralis Pedis: 3+, Right Dorsalis Pedis: 3+, Left Femoral: 3+, Right Femoral: 3+ Integumentary: Yes: WNL Neurological: Yes: WNL, Alert, Oriented ...Motor Strength: WNL Psychiatric: Yes: WNL, Alert, Oriented Labs: reviewed 11/10/2017. Imaging - Results EKG: Image Reviewed, Other (normal sinus rhythm) Assessment/Plan patient is a 87-year-old female that presents for a ECT, labs and EKG reviewed, patient is medically optimized for procedure. Informed consent, risks benefits to be obtained by Dr. Montgomery
[2018-01-04] MEDS ORDERED: KETAMINE HCL 500 MG/10 ML VIAL ONE (08:00)
[2018-01-04 09:08] VITALS: TEMP 98.2
[2018-01-04 09:56] VITALS: BP 138/66; PULSE 68
== END 2018-01-04 09:45 | disposition home or self-care (01) ==
LOC: FECT 05:36
PROVIDERS: ATTEND Psychiatry & Neurology Psychiatry
PROC: GZB4ZZZ Other Electroconvulsive Therapy (ICD-10-PCS; principal; 2018-01-04 07:30)
DX: F33.2 Major depressive disorder, recurrent severe without psychotic features (principal)
CPT/HCPCS: 90870; 94760

== ENCOUNTER 2018-01-18 05:51 | Day surgery (SDC) | payer OTHER ==
[2018-01-04 15:05] VITALS: BMI 32.8
[2018-01-18 06:39] VITALS: TEMP 98
[2018-01-18] MEDS ORDERED: ONDANSETRON 4 MG/2 ML VIAL IVPUSH PRN (07:24)
[2018-01-18] MEDS ORDERED: LACTATED RINGERS SOLUTION 1,000 ML IV SCH (07:30)
[2018-01-18 08:31] VITALS: BP 141/61; PULSE 77
== END 2018-01-18 08:15 | disposition home or self-care (01) ==
LOC: FECT 05:51
PROVIDERS: ATTEND Psychiatry & Neurology Psychiatry
PROC: GZB4ZZZ Other Electroconvulsive Therapy (ICD-10-PCS; principal; 2018-01-18 07:15)
DX: F33.2 Major depressive disorder, recurrent severe without psychotic features (principal)
CPT/HCPCS: 90870; 94760

== ENCOUNTER 2018-02-01 05:49 | Day surgery (SDC) | payer OTHER ==
[2018-01-20 14:21] VITALS: BMI 32.8
[2018-02-01] MEDS ORDERED: ACETAMINOPHEN 325 MG TABLET (FP) PO PRN (07:59)
[2018-02-01] MEDS ORDERED: PROMETHAZINE HCL 25 MG/1 ML VIAL IVPUSH PRN (07:59)
[2018-02-01] MEDS ORDERED: ONDANSETRON 4 MG/2 ML VIAL IVPUSH PRN (07:59)
[2018-02-01] MEDS ORDERED: LACTATED RINGERS SOLUTION 1,000 ML IV SCH (08:00)
[2018-02-01 08:39] VITALS: TEMP 98.2
[2018-02-01 10:57] VITALS: BP 129/69; PULSE 69
== END 2018-02-01 10:15 | disposition home or self-care (01) ==
LOC: FECT 05:49
PROVIDERS: ATTEND Psychiatry & Neurology Psychiatry
PROC: GZB4ZZZ Other Electroconvulsive Therapy (ICD-10-PCS; principal; 2018-02-01 08:00)
DX: F33.2 Major depressive disorder, recurrent severe without psychotic features (principal)

== ENCOUNTER 2018-02-24 05:41 | Day surgery (SDC) | payer OTHER ==
[2018-02-08 14:33] VITALS: BMI 32.8
--- NOTE | 2018-02-24 07:57 | HP ---
Admitting History and Physical - Admission History of Present Illness: patient is a 87-year-old female, with a past medical history of CAD, hypertension, hyperlipidemia, hypothyroidism, depression and anxiety. Patient presents for ECT, her last ECT was 02/15/2018. Significant improvement and depressive symptoms since starting ECT. Patient denies any changes to her medications. Patient reports compliance with prescribed medications. She denies any recent illnesses hospital lesions. Patient denies any suicidal, homicidal ideation or visual auditory hallucinations. History Source: Patient Limitations to Obtaining History: No Limitations - Past Medical History Cardiovascular: Yes: CAD, HTN, Hyperlipdemia ...: No Psych: Yes: Depression Endocrine: Yes: Hypothyroidism - Smoking History Smoking history: Never smoked Have you smoked in the past 12 months: No - Alcohol/Substance Use Hx Alcohol Use: Yes (RARE) History of Substance Use: reports: None - Social History Usual Living Arrangement: Yes: With Spouse ADL: Independent Occupation: retired resides at home with History of Recent Travel: No Home Medications - Allergies Allergies/Adverse Reactions: Allergies Allergy/AdvReac Type Severity Reaction Status Date / Time No Known Drug Allergies Allergy Verified 02/24/18 07:32 - Home Medications Home Medications: Ambulatory Orders Bupropion HCl [Wellbutrin Xl] 300 mg PO DAILY 03/03/17 Furosemide [Lasix -] 40 mg PO DAILY 03/03/17 Labetalol HCl 100 mg PO BID 03/03/17 Mirtazapine 15 mg PO HS 03/03/17 Ramipril 10 mg PO DAILY 03/03/17 Rosuvastatin Calcium [Crestor] 5 mg PO DAILY 03/03/17 Spironolactone 25 mg PO DAILY 03/03/17 Aspirin Coated [Ecotrin -] 81 mg PO DAILY 11/10/17 Levothyroxine [Synthroid -] 25 mcg PO DAILY 11/10/17 Family Disease History - Family Disease History Family History: Denies Review of Systems - Review of Systems Constitutional: reports: No Symptoms Eyes: reports: No Symptoms HENT: reports: No Symptoms Neck: reports: No Symptoms Cardiovascular: reports: No Symptoms Respiratory: reports: No Symptoms Gastrointestinal: reports: No Symptoms Genitourinary: reports: No Symptoms Musculoskeletal: reports: No Symptoms Integumentary: reports: No Symptoms Neurological: reports: No Symptoms Endocrine: reports: No Symptoms Hematology/Lymphatic: reports: No Symptoms Psychiatric: reports: No Symptoms Physical Examination Vital Signs: Vital Signs Temperature 97.6 F 02/24/18 07:34 Pulse Rate 60 02/24/18 07:34 Respiratory Rate 16 02/24/18 07:34 Blood Pressure 140/61 02/24/18 07:34 O2 Sat by Pulse Oximetry (%) 100 02/24/18 07:34 Constitutional: Yes: Well Nourished, No Distress, Calm Eyes: Yes: WNL, Conjunctiva Clear, EOM Intact HENT: Yes: WNL, Atraumatic, Normocephalic Neck: Yes: WNL, Supple, Trachea Midline Cardiovascular: Yes: WNL, Regular Rate and Rhythm, S1, S2 Respiratory: Yes: WNL, Regular, CTA Bilaterally Gastrointestinal: Yes: WNL, Normal Bowel Sounds, Soft ...Rectal Exam: Yes: Deferred Renal/: Yes: WNL Musculoskeletal: Yes: WNL Extremities: Yes: WNL Edema: No Peripheral Pulses WNL: Yes Integumentary: Yes: WNL Neurological: Yes: WNL, Alert, Oriented ...Motor Strength: WNL Psychiatric: Yes: WNL, Alert, Oriented Labs: review 11/10/2017 Imaging - Results EKG: Other (nsr nonspecific T-wave abnormality) Assessment/Plan patient is a 87-year-old female presents for ECT, labs and EKG reviewed. patient is medically optimized for procedure informed consent, risk/benefits to be obtained by Dr Montgomery
[2018-02-24] MEDS ORDERED: KETAMINE HCL 500 MG/10 ML VIAL ONE (08:45)
[2018-02-24 09:48] VITALS: TEMP 98.4
[2018-02-24 10:25] VITALS: BP 125/50; PULSE 66
== END 2018-02-24 10:30 | disposition home or self-care (01) ==
LOC: FECT 05:41
PROVIDERS: ATTEND Psychiatry & Neurology Psychiatry
PROC: GZB4ZZZ Other Electroconvulsive Therapy (ICD-10-PCS; principal; 2018-02-24 07:30)
DX: F33.2 Major depressive disorder, recurrent severe without psychotic features (principal)
CPT/HCPCS: 90870; 94760

== ENCOUNTER 2018-03-16 05:48 | Day surgery (SDC) | payer OTHER ==
[2018-03-16] MEDS ORDERED: ONDANSETRON 4 MG/2 ML VIAL IVPUSH PRN (07:16)
[2018-03-16 07:40] VITALS: TEMP 97.7; BMI 32.8
[2018-03-16] MEDS ORDERED: KETAMINE HCL 500 MG/10 ML VIAL ONE (07:56)
[2018-03-16 09:40] VITALS: BP 120/60; PULSE 66
== END 2018-03-16 09:30 | disposition home or self-care (01) ==
LOC: FECT 05:48
PROVIDERS: ATTEND Psychiatry & Neurology Psychiatry
PROC: GZB4ZZZ Other Electroconvulsive Therapy (ICD-10-PCS; principal; 2018-03-16 08:00)
DX: F33.2 Major depressive disorder, recurrent severe without psychotic features (principal)
CPT/HCPCS: 90870; 94760

== ENCOUNTER 2018-04-06 05:45 | Day surgery (SDC) | payer OTHER ==
[2018-04-06 07:26] VITALS: BMI 32.8
--- NOTE | 2018-04-06 07:48 | HP ---
CHIEF COMPLAINT: PCP: Dr. Talavera [place] Primary Psych: Dr. Montgomery [phone] HISTORY OF PRESENT ILLNESS: Recent Events: PAST MEDICAL HISTORY: PAST SURGICAL HISTORY: Social History: Smoking: Alcohol: Drugs: Allergies No Known Drug Allergies Allergy (Verified 02/24/18 07:32) HOME MEDICATIONS: Home Medications Medication Instructions Recorded Bupropion HCl [Wellbutrin Xl] 300 mg PO DAILY 03/03/17 Furosemide [Lasix -] 40 mg PO DAILY 03/03/17 Labetalol HCl 100 mg PO BID 03/03/17 Mirtazapine 15 mg PO HS 03/03/17 Ramipril 10 mg PO DAILY 03/03/17 Rosuvastatin Calcium [Crestor] 5 mg PO DAILY 03/03/17 Spironolactone 25 mg PO DAILY 03/03/17 Aspirin Coated [Ecotrin -] 81 mg PO DAILY 11/10/17 Levothyroxine [Synthroid -] 25 mcg PO DAILY 11/10/17 REVIEW OF SYSTEMS CONSTITUTIONAL: Absent: fever, chills, diaphoresis, generalized weakness, malaise, loss of appetite, weight change HEENT: Absent: rhinorrhea, nasal congestion, throat pain, throat swelling, difficulty swallowing, mouth swelling, ear pain, eye pain, visual changes CARDIOVASCULAR: Absent: chest pain, syncope, palpitations, irregular heart rate, lightheadedness , peripheral edema RESPIRATORY: Absent: cough, shortness of breath, dyspnea with exertion, orthopnea, wheezing, stridor, hemoptysis GASTROINTESTINAL: Absent: abdominal pain, abdominal distension, nausea, vomiting, diarrhea, constipation, melena, hematochezia GENITOURINARY: Absent: dysuria, frequency, urgency, hesitancy, hematuria, flank pain, genital pain MUSCULOSKELETAL: Absent: myalgia, arthralgia, joint swelling, back pain, neck pain SKIN: Absent: rash, itching, pallor HEMATOLOGIC/IMMUNOLOGIC: Absent: easy bleeding, easy bruising, lymphadenopathy, frequent infections ENDOCRINE: Absent: unexplained weight gain, unexplained weight loss, heat intolerance, cold intolerance NEUROLOGIC: Absent: headache, focal weakness or paresthesias, dizziness, unsteady gait, seizure, mental status changes, bladder or bowel incontinence PHYSICAL EXAMINATION Vital Signs - 24 hr 04/06/18 07:24 Temperature 97.8 F Pulse Rate 65 Respiratory 18 Rate Blood Pressure 157/70 O2 Sat by Pulse 100 Oximetry (%) GENERAL: Awake, alert, and fully oriented, in no acute distress. HEAD: Normal with no signs of trauma. EYES: Pupils equal, round and reactive to light, sclera anicteric, conjunctiva clear. LUNGS: Breath sounds equal, clear to auscultation bilaterally. No wheezes, and no crackles. No accessory muscle use. HEART: Regular rate and rhythm, normal S1 and S2 ABDOMEN: Soft, nontender, not distended MUSCULOSKELETAL: Normal range of motion at all joints. No bony deformities or tenderness. No CVA tenderness. UPPER EXTREMITIES: 2+ pulses, warm, well-perfused. No cyanosis. No clubbing. No peripheral edema. LOWER EXTREMITIES: 2+ pulses, warm, well-perfused. No calf tenderness. No peripheral edema. NEUROLOGICAL: Cranial nerves II-XII intact. Normal speech. ASSESSMENT/PLAN: Cardiac --no cardiac history --Revised Cardiac Risk Index for Pre-Operative Risk: 0 points, 0.4% risk of major cardiac event Pulmonary --no pulmonary history Neurological --no neurological or neurosurgical history; no history of trauma Anesthesia --no reported problems with anesthesia ECT is a low risk procedure. The relative benefits of the planned procedure outweigh the relative risks for this patient at this time.
[2018-04-06] MEDS ORDERED: KETAMINE HCL 500 MG/10 ML VIAL ONE (08:03)
[2018-04-06 09:01] VITALS: TEMP 99.3
[2018-04-06 09:37] VITALS: BP 143/64; PULSE 76
== END 2018-04-06 09:52 | disposition home or self-care (01) ==
LOC: FECT 05:45
PROVIDERS: ATTEND Psychiatry & Neurology Psychiatry
PROC: GZB4ZZZ Other Electroconvulsive Therapy (ICD-10-PCS; principal; 2018-04-06 07:00)
DX: F32.9 Major depressive disorder, single episode, unspecified (principal)
CPT/HCPCS: 90870; 94760

== ENCOUNTER 2018-04-27 05:45 | Day surgery (SDC) | payer OTHER ==
[2018-04-27 08:13] LABS: EOS % 3.1 % (0-4.5); HEMATOCRIT 35.9 % (32.4-45.2); HEMOGLOBIN 11.9 GM/dl (10.7-15.3); LYMPH % 20.6 % (8-40); MCH 28.8 pg (25.7-33.7); MCHC 33.2 g/dl (32.0-36.0); MEAN CELL VOLUME 86.8 fl (80-96); MEAN PLT VOLUME 6.9 fl (7.5-11.1); MONO % 9.1 % (3.8-10.2); NEUT % 66.2 % (42.8-82.8); PLATELET COUNT 208 K/MM3 (134-434); RBC 4.14 M/mm3 (3.60-5.2); RDW 14.9 % (11.6-15.6); WHITE BLOOD COUNT 5.3 K/mm3 (4.0-10.8)
[2018-04-27 08:24] VITALS: TEMP 98.3; BMI 31.4
[2018-04-27 08:32] LABS: ALBUMIN 4.1 g/dl (3.5-5.0); ALK PHOS 56 U/L (32-92); ANION GAP 8 MMOL/L (8-16); BILIRUBIN,TOTAL 0.8 mg/dl (0.2-1.0); BLOOD UREA NITROGEN 32 mg/dl (7-18); CALCIUM 9.3 mg/dl (8.4-10.2); CHLORIDE 109 mmol/L (98-107); CO2 27 mmol/L (22-28); GLUCOSE,RANDOM 90 mg/dl (74-106); MAGNESIUM 2.3 mg/dL (1.8-2.4); POTASSIUM 4.4 mmol/L (3.5-5.1); SGOT/AST 13 U/L (10-42); SGPT/ALT 14 U/L (10-40); SODIUM 144 mmol/L (136-145)
--- NOTE | 2018-04-27 08:44 | HP ---
CHIEF COMPLAINT: Major Depressive Disorder PCP: Dr. Talavera [place] Primary Psych: Dr. Montgomery Cardiology: Dr. Moran, [place] [phone] HISTORY OF PRESENT ILLNESS: 87 year-old female with a PMH significant for HTN, HLD, CAD, hypothyroidism, and major depressive disorder. Patient began ECT therapy in 2017. She presents today for ECT. Recent Events: * None reported PAST MEDICAL HISTORY: Hypertension Hyperlipidemia Coronary artery disease Hypothyroidism Kidney stones PAST SURGICAL HISTORY: Appendectomy Social History: Smoking: never Alcohol: no Drugs: no Allergies No Known Drug Allergies Allergy (Verified 02/24/18 07:32) HOME MEDICATIONS: Home Medications Medication Instructions Recorded Bupropion HCl [Wellbutrin Xl] 300 mg PO DAILY 03/03/17 Furosemide [Lasix -] 40 mg PO DAILY 03/03/17 Labetalol HCl 100 mg PO BID 03/03/17 Mirtazapine 15 mg PO HS 03/03/17 Ramipril 10 mg PO DAILY 03/03/17 Rosuvastatin Calcium [Crestor] 5 mg PO DAILY 03/03/17 Spironolactone 25 mg PO DAILY 03/03/17 Aspirin Coated [Ecotrin -] 81 mg PO DAILY 11/10/17 Levothyroxine [Synthroid -] 25 mcg PO DAILY 11/10/17 REVIEW OF SYSTEMS CONSTITUTIONAL: Absent: fever, chills, diaphoresis, generalized weakness, malaise, loss of appetite, weight change HEENT: Absent: rhinorrhea, nasal congestion, throat pain, throat swelling, difficulty swallowing, mouth swelling, ear pain, eye pain, visual changes CARDIOVASCULAR: Absent: chest pain, syncope, palpitations, irregular heart rate, lightheadedness , peripheral edema RESPIRATORY: Absent: cough, shortness of breath, dyspnea with exertion, orthopnea, wheezing, stridor, hemoptysis GASTROINTESTINAL: Absent: abdominal pain, abdominal distension, nausea, vomiting, diarrhea, constipation, melena, hematochezia GENITOURINARY: Absent: dysuria, frequency, urgency, hesitancy, hematuria, flank pain, genital pain MUSCULOSKELETAL: Absent: myalgia, arthralgia, joint swelling, back pain, neck pain SKIN: Absent: rash, itching, pallor HEMATOLOGIC/IMMUNOLOGIC: Absent: easy bleeding, easy bruising, lymphadenopathy, frequent infections ENDOCRINE: Absent: unexplained weight gain, unexplained weight loss, heat intolerance, cold intolerance NEUROLOGIC: Absent: headache, focal weakness or paresthesias, dizziness, unsteady gait, seizure, mental status changes, bladder or bowel incontinence PHYSICAL EXAMINATION Vital Signs - 24 hr 04/27/18 08:16 Temperature 98.3 F Pulse Rate 90 Respiratory 18 Rate Blood Pressure 138/70 O2 Sat by Pulse 95 Oximetry (%) GENERAL: Awake, alert, and fully oriented, in no acute distress. HEAD: Normal with no signs of trauma. EYES: Pupils equal, round and reactive to light, sclera anicteric, conjunctiva clear. LUNGS: Breath sounds equal, clear to auscultation bilaterally. No wheezes, and no crackles. No accessory muscle use. HEART: Regular rate and rhythm, normal S1 and S2 ABDOMEN: Soft, nontender, not distended MUSCULOSKELETAL: Normal range of motion at all joints. No bony deformities or tenderness. No CVA tenderness. UPPER EXTREMITIES: 2+ pulses, warm, well-perfused. No cyanosis. No clubbing. No peripheral edema. LOWER EXTREMITIES: 2+ pulses, warm, well-perfused. No calf tenderness. No peripheral edema. NEUROLOGICAL: Cranial nerves II-XII intact. Normal speech. Laboratory Results - last 24 hr 04/27/18 04/27/18 08:00 08:00 WBC 5.3 RBC 4.14 Hgb 11.9 Hct 35.9 MCV 86.8 MCH 28.8 MCHC 33.2 RDW 14.9 Plt Count 208 MPV 6.9 L Absolute Neuts (auto) 3.4 Neutrophils % 66.2 Lymphocytes % 20.6 Monocytes % 9.1 Eosinophils % 3.1 Basophils % 1.0 Sodium 144 Potassium 4.4 Chloride 109 H Carbon Dioxide 27 Anion Gap 8 BUN 32 H Creatinine 1.0 Creat Clearance w eGFR 52.33 Random Glucose 90 D Calcium 9.3 Magnesium 2.3 Total Bilirubin 0.8 AST 13 ALT 14 Alkaline Phosphatase 56 Total Protein 6.0 L Albumin 4.1 ASSESSMENT/PLAN: 87 year-old female with a PMH significant for HTN, HLD, CAD, hypothyroidism, and major depressive disorder. She presents today for ECT. Cardiac --no cardiac history --Revised Cardiac Risk Index for Pre-Operative Risk: 0 points, 0.4% risk of major cardiac event Pulmonary --no pulmonary history Neurological --no neurological or neurosurgical history; no history of trauma Anesthesia --no reported problems with anesthesia ECT is a low risk procedure. The relative benefits of the planned procedure outweigh the relative risks for this patient at this time. Visit type - Emergency Visit Emergency Visit: No - New Patient This patient is new to me today: Yes Date on this admission: 04/27/18 - Critical Care Critical Care patient: No
[2018-04-27] MEDS ORDERED: KETAMINE HCL SYRINGES 150 MG/3 ML VIAL ONE (08:52)
[2018-04-27 10:45] VITALS: BP 143/70; PULSE 74
--- NOTE | 2018-04-27 12:47 | EKG ---
Test Reason : Blood Pressure : / mmHG Vent. Rate : 067 BPM Atrial Rate : 067 BPM P-R Int : 186 ms QRS Dur : 088 ms QT Int : 404 ms P-R-T Axes : 052 -16 013 degrees QTc Int : 426 ms NORMAL SINUS RHYTHM ABNORMAL ECG WHEN COMPARED WITH ECG OF 10-NOV-2017 12:20, T WAVE INVERSION LESS EVIDENT IN LATERAL LEADS Confirmed by SUNDAY SIMEON MD ([id number]) on 04/27/2018 12:47:08 PM Referred By: Mook Montgomery Confirmed By:SUNDAY SIMEON MD
== END 2018-04-27 10:20 | disposition home or self-care (01) ==
LOC: FECT 05:45
PROVIDERS: ATTEND Psychiatry & Neurology Psychiatry
PROC: GZB4ZZZ Other Electroconvulsive Therapy (ICD-10-PCS; principal; 2018-04-27 07:30)
DX: F33.2 Major depressive disorder, recurrent severe without psychotic features (principal)
CPT/HCPCS: 36415; 80053; 83735; 85025; 90870; 93005; 94760

== ENCOUNTER 2018-05-16 05:50 | Day surgery (SDC) | payer OTHER ==
[2018-05-16 08:13] VITALS: BMI 31.4
[2018-05-16] MEDS ORDERED: ONDANSETRON 4 MG/2 ML VIAL IVPUSH PRN (08:50)
[2018-05-16] MEDS ORDERED: ACETAMINOPHEN 325 MG TABLET (FP) PO PRN (08:50)
[2018-05-16] MEDS ORDERED: KETAMINE HCL SYRINGES 150 MG/3 ML ONE (09:02)
[2018-05-16 10:49] VITALS: TEMP 98.2
[2018-05-16 10:50] VITALS: BP 144/72; PULSE 64
== END 2018-05-16 10:50 | disposition home or self-care (01) ==
LOC: FECT 05:50
PROVIDERS: ATTEND Psychiatry & Neurology Psychiatry
PROC: GZB4ZZZ Other Electroconvulsive Therapy (ICD-10-PCS; principal; 2018-05-16 08:15)
DX: F33.2 Major depressive disorder, recurrent severe without psychotic features (principal)
CPT/HCPCS: 90870; 94760

== ENCOUNTER 2018-06-06 05:43 | Day surgery (SDC) | payer OTHER ==
[2018-06-06] MEDS ORDERED: ACETAMINOPHEN 325 MG TABLET (FP) PO PRN (07:22)
[2018-06-06] MEDS ORDERED: PROMETHAZINE HCL 25 MG/1 ML VIAL IVPUSH PRN (07:22)
[2018-06-06] MEDS ORDERED: LACTATED RINGERS SOLUTION 1,000 ML IV SCH (07:30)
--- NOTE | 2018-06-06 07:59 | HP ---
CHIEF COMPLAINT: Major Depressive Disorder PCP: Dr. Talavera [place] Primary Psych: [facility] Montgomery [phone] HISTORY OF PRESENT ILLNESS: 87 year-old female with a PMH significant for HTN, HLD, CAD, heart failure, hypothyroidism, and major depressive disorder. Patient began ECT therapy in 2017. She presents today for ECT. Recent Events: * None reported PAST MEDICAL HISTORY: Hypertension Hyperlipidemia Coronary artery disease Heart failure Hypothyroidism Kidney stones PAST SURGICAL HISTORY: Appendectomy Social History: Smoking: never Alcohol: no Drugs: no Allergies No Known Drug Allergies Allergy (Verified 02/24/18 07:32) HOME MEDICATIONS: Home Medications Medication Instructions Recorded Bupropion HCl [Wellbutrin Xl] 300 mg PO DAILY 03/03/17 Furosemide [Lasix -] 40 mg PO DAILY 03/03/17 Labetalol HCl 100 mg PO BID 03/03/17 Mirtazapine 15 mg PO HS 03/03/17 Ramipril 10 mg PO DAILY 03/03/17 Rosuvastatin Calcium [Crestor] 5 mg PO DAILY 03/03/17 Spironolactone 25 mg PO DAILY 03/03/17 Aspirin Coated [Ecotrin -] 81 mg PO DAILY 11/10/17 Levothyroxine [Synthroid -] 25 mcg PO DAILY 11/10/17 REVIEW OF SYSTEMS CONSTITUTIONAL: Absent: fever, chills, diaphoresis, generalized weakness, malaise, loss of appetite, weight change HEENT: Absent: rhinorrhea, nasal congestion, throat pain, throat swelling, difficulty swallowing, mouth swelling, ear pain, eye pain, visual changes CARDIOVASCULAR: Absent: chest pain, syncope, palpitations, irregular heart rate, lightheadedness , peripheral edema RESPIRATORY: Absent: cough, shortness of breath, dyspnea with exertion, orthopnea, wheezing, stridor, hemoptysis GASTROINTESTINAL: Absent: abdominal pain, abdominal distension, nausea, vomiting, diarrhea, constipation, melena, hematochezia GENITOURINARY: Absent: dysuria, frequency, urgency, hesitancy, hematuria, flank pain, genital pain MUSCULOSKELETAL: Absent: myalgia, arthralgia, joint swelling, back pain, neck pain SKIN: Absent: rash, itching, pallor HEMATOLOGIC/IMMUNOLOGIC: Absent: easy bleeding, easy bruising, lymphadenopathy, frequent infections ENDOCRINE: Absent: unexplained weight gain, unexplained weight loss, heat intolerance, cold intolerance NEUROLOGIC: Absent: headache, focal weakness or paresthesias, dizziness, unsteady gait, seizure, mental status changes, bladder or bowel incontinence PHYSICAL EXAMINATION GENERAL: Awake, alert, and fully oriented, in no acute distress. HEAD: Normal with no signs of trauma. EYES: Pupils equal, round and reactive to light, sclera anicteric, conjunctiva clear. LUNGS: Breath sounds equal, clear to auscultation bilaterally. No wheezes, and no crackles. No accessory muscle use. HEART: Regular rate and rhythm, normal S1 and S2 ABDOMEN: Soft, nontender, not distended MUSCULOSKELETAL: Normal range of motion at all joints. No bony deformities or tenderness. No CVA tenderness. UPPER EXTREMITIES: 2+ pulses, warm, well-perfused. No cyanosis. No clubbing. No peripheral edema. LOWER EXTREMITIES: 2+ pulses, warm, well-perfused. No calf tenderness. 1+ bilateral edema NEUROLOGICAL: Cranial nerves II-XII intact. Normal speech. ASSESSMENT/PLAN: 87 year-old female with a PMH significant for HTN, HLD, CAD, heart failure, hypothyroidism, and major depressive disorder. She presents today for ECT. Cardiac --mild bilateral lower extremity edema noted on today's exam; daughter states patient has been told in past she has heart failure; had an echo within the last year and takes daily furosemide 40mg; has been stable for some time, no worsening of edema, no SOB, no ONEIL, no chest pain, palpitations, no orthopnea --will get copy of most recent echo --Revised Cardiac Risk Index for Pre-Operative Risk: 0 point, 0.4% risk of major cardiac event - no evidence of pulmonary edema, bilateral rales, S3 gallop , PNS, or pulmonary congestion on CXR Pulmonary --no pulmonary history Neurological --no neurological or neurosurgical history; no history of trauma Anesthesia --no reported problems with anesthesia ECT is a low risk procedure. The relative benefits of the planned procedure outweigh the relative risks for this patient at this time. Visit type - Emergency Visit Emergency Visit: No - New Patient This patient is new to me today: Yes Date on this admission: 06/07/18 - Critical Care Critical Care patient: No
[2018-06-06 08:05] VITALS: BMI 31.4
[2018-06-06] MEDS ORDERED: KETAMINE HCL SYRINGES 150 MG/3 ML ONE (08:32)
[2018-06-06 09:53] VITALS: TEMP 97.5
[2018-06-06 10:24] VITALS: BP 133/62; PULSE 64
== END 2018-06-06 10:27 | disposition home or self-care (01) ==
LOC: FECT 05:43
PROVIDERS: ATTEND Psychiatry & Neurology Psychiatry
PROC: GZB4ZZZ Other Electroconvulsive Therapy (ICD-10-PCS; principal; 2018-06-06 07:00)
DX: F32.9 Major depressive disorder, single episode, unspecified (principal)
CPT/HCPCS: 90870; 94760

== ENCOUNTER 2018-06-27 05:45 | Day surgery (SDC) | payer OTHER ==
[2018-06-27] MEDS ORDERED: ONDANSETRON 4 MG/2 ML VIAL IVPUSH PRN (07:20)
[2018-06-27 08:06] VITALS: BMI 31.4
[2018-06-27] MEDS ORDERED: KETAMINE HCL SYRINGES 150 MG/3 ML ONE (08:29)
[2018-06-27 09:39] VITALS: TEMP 98.4
[2018-06-27 10:08] VITALS: BP 152/72; PULSE 69
== END 2018-06-27 10:00 | disposition home or self-care (01) ==
LOC: FECT 05:45
PROVIDERS: ATTEND Psychiatry & Neurology Psychiatry
PROC: GZB4ZZZ Other Electroconvulsive Therapy (ICD-10-PCS; principal; 2018-06-27 07:00)
DX: F32.9 Major depressive disorder, single episode, unspecified (principal)
CPT/HCPCS: 90870; 94760

== ENCOUNTER 2018-07-25 05:41 | Day surgery (SDC) | payer OTHER ==
--- NOTE | 2018-07-25 07:56 | HP ---
CHIEF COMPLAINT: Major Depressive Disorder PCP: Dr. Talavera [place] Primary Psych: Dr. Montgomery Cardiology: Dr. Moran, [place] [phone] HISTORY OF PRESENT ILLNESS: 87 year-old female with a PMH significant for HTN, HLD, CAD, heart failure, hypothyroidism, and major depressive disorder. Patient began ECT therapy in 2017. She presents today for ECT. Recent Events: * None reported PAST MEDICAL HISTORY: Hypertension Hyperlipidemia Coronary artery disease Diastolic heart failure Hypothyroidism Kidney stones PAST SURGICAL HISTORY: Appendectomy Allergies No Known Drug Allergies Allergy (Verified 02/24/18 07:32) HOME MEDICATIONS: Home Medications Medication Instructions Recorded Bupropion HCl [Wellbutrin Xl] 300 mg PO DAILY 03/03/17 Furosemide [Lasix -] 40 mg PO DAILY 03/03/17 Labetalol HCl 100 mg PO BID 03/03/17 Mirtazapine 15 mg PO HS 03/03/17 Ramipril 10 mg PO DAILY 03/03/17 Rosuvastatin Calcium [Crestor] 5 mg PO DAILY 03/03/17 Spironolactone 25 mg PO DAILY 03/03/17 Aspirin Coated [Ecotrin -] 81 mg PO DAILY 11/10/17 Levothyroxine [Synthroid -] 25 mcg PO DAILY 11/10/17 REVIEW OF SYSTEMS CONSTITUTIONAL: Absent: fever, chills, diaphoresis, generalized weakness, malaise, loss of appetite, weight change HEENT: Absent: rhinorrhea, nasal congestion, throat pain, throat swelling, difficulty swallowing, mouth swelling, ear pain, eye pain, visual changes CARDIOVASCULAR: Absent: chest pain, syncope, palpitations, irregular heart rate, lightheadedness , peripheral edema RESPIRATORY: Absent: cough, shortness of breath, dyspnea with exertion, orthopnea, wheezing, stridor, hemoptysis GASTROINTESTINAL: Absent: abdominal pain, abdominal distension, nausea, vomiting, diarrhea, constipation, melena, hematochezia GENITOURINARY: Absent: dysuria, frequency, urgency, hesitancy, hematuria, flank pain, genital pain MUSCULOSKELETAL: Absent: myalgia, arthralgia, joint swelling, back pain, neck pain SKIN: Absent: rash, itching, pallor HEMATOLOGIC/IMMUNOLOGIC: Absent: easy bleeding, easy bruising, lymphadenopathy, frequent infections ENDOCRINE: Absent: unexplained weight gain, unexplained weight loss, heat intolerance, cold intolerance NEUROLOGIC: Absent: headache, focal weakness or paresthesias, dizziness, unsteady gait, seizure, mental status changes, bladder or bowel incontinence PHYSICAL EXAMINATION GENERAL: Awake, alert, and fully oriented, in no acute distress. HEAD: Normal with no signs of trauma. EYES: Pupils equal, round and reactive to light, sclera anicteric, conjunctiva clear. LUNGS: Breath sounds equal, clear to auscultation bilaterally. No wheezes, and no crackles. No accessory muscle use. HEART: Regular rate and rhythm, normal S1 and S2 ABDOMEN: Soft, nontender, not distended MUSCULOSKELETAL: Normal range of motion at all joints. No bony deformities or tenderness. No CVA tenderness. UPPER EXTREMITIES: 2+ pulses, warm, well-perfused. No cyanosis. No clubbing. No peripheral edema. LOWER EXTREMITIES: 2+ pulses, warm, well-perfused. No calf tenderness. Trace edema bilaterally NEUROLOGICAL: Cranial nerves II-XII intact. Normal speech. ASSESSMENT/PLAN: 87 year-old female with a PMH significant for HTN, HLD, CAD, diastolic heart failure, hypothyroidism, and major depressive disorder. She presents today for ECT. Cardiac --12/27/16 Echo: moderate cLVH, LV function normal, EF 60-65%, diastolic dysfunction; RV normal; trace MR; mild AI; trace TR; trace TR; trace PI --mild bilateral lower extremity edema, unchanged --still on Lasix PO 40mg daily --Revised Cardiac Risk Index for Pre-Operative Risk: 0 point, 0.4% risk of major cardiac event - no evidence of pulmonary edema, bilateral rales, S3 gallop , PNS, or pulmonary congestion on CXR Cardiac --no cardiac history --Revised Cardiac Risk Index for Pre-Operative Risk: 0 points, 0.4% risk of major cardiac event Pulmonary --no pulmonary history Neurological --no neurological or neurosurgical history; no history of trauma Anesthesia --no reported problems with anesthesia ECT is a low risk procedure. The relative benefits of the planned procedure outweigh the relative risks for this patient at this time. Visit type - Emergency Visit Emergency Visit: No - New Patient This patient is new to me today: Yes Date on this admission: 07/25/18 - Critical Care Critical Care patient: No
[2018-07-25 07:58] VITALS: BMI 31.4
[2018-07-25] MEDS ORDERED: KETOROLAC TROMETHAMINE 30 MG/1 ML VIAL ONE (08:28)
[2018-07-25] MEDS ORDERED: KETAMINE HCL 500 MG/10 ML VIAL ONE (08:29)
[2018-07-25] MEDS ORDERED: ONDANSETRON 4 MG/2 ML VIAL IVPUSH PRN (08:51)
[2018-07-25] MEDS ORDERED: LACTATED RINGERS SOLUTION 1,000 ML IV SCH (09:00)
[2018-07-25 10:11] VITALS: BP 140/69; PULSE 68
[2018-07-25 10:36] VITALS: TEMP 98
== END 2018-07-25 10:15 | disposition home or self-care (01) ==
LOC: FECT 05:41
PROVIDERS: ATTEND Psychiatry & Neurology Psychiatry
PROC: GZB4ZZZ Other Electroconvulsive Therapy (ICD-10-PCS; principal; 2018-07-25 07:15)
DX: F33.2 Major depressive disorder, recurrent severe without psychotic features (principal); I11.0 Hypertensive heart disease with heart failure; E78.5 Hyperlipidemia, unspecified; I25.10 Atherosclerotic heart disease of native coronary artery without angina pectoris; I50.30 Unspecified diastolic (congestive) heart failure; E03.9 Hypothyroidism, unspecified
CPT/HCPCS: 90870; 94760

== ENCOUNTER 2018-08-29 05:43 | Day surgery (SDC) | payer OTHER | END 2018-08-29 09:50 | disposition home or self-care (01) | LOC: FECT 05:43 | PROC: GZB4ZZZ Other Electroconvulsive Therapy (ICD-10-PCS; principal; 2018-08-29 07:00) | DX: F32.9 Major depressive disorder, single episode, unspecified (principal) ==

== ENCOUNTER 2018-09-26 07:31 | Day surgery (SDC) | payer OTHER | END 2018-09-26 09:45 | disposition home or self-care (01) | LOC: FECT 07:31 ==

== ENCOUNTER 2018-10-31 05:39 | Day surgery (SDC) | payer OTHER ==
--- NOTE | 2018-10-31 07:26 | HP ---
CHIEF COMPLAINT: Major Depressive Disorder PCP: Dr. Talavera [place] Primary Psych: Dr. Montgomery Cardiology: Dr. Moran, [place] [phone] HISTORY OF PRESENT ILLNESS: 87 year-old female with a PMH significant for HTN, HLD, CAD, heart failure, hypothyroidism, and major depressive disorder. Patient began ECT therapy in 2017. She presents today for ECT. Recent Events: * Fluoxetine increased to 20mg BID PAST MEDICAL HISTORY: Hypertension Hyperlipidemia Coronary artery disease Diastolic heart failure Hypothyroidism Kidney stones PAST SURGICAL HISTORY: Appendectomy Allergies No Known Drug Allergies Allergy (Verified 09/20/18 17:11) HOME MEDICATIONS: Home Medications Medication Instructions Recorded Bupropion HCl [Wellbutrin Xl] 300 mg PO DAILY 03/03/17 Furosemide [Lasix -] 40 mg PO DAILY 03/03/17 Labetalol HCl 100 mg PO BID 03/03/17 Mirtazapine 15 mg PO HS 03/03/17 Ramipril 10 mg PO DAILY 03/03/17 Rosuvastatin Calcium [Crestor] 5 mg PO DAILY 03/03/17 Spironolactone 25 mg PO DAILY 03/03/17 Aspirin Coated [Ecotrin -] 81 mg PO DAILY 11/10/17 Levothyroxine [Synthroid -] 25 mcg PO DAILY 11/10/17 REVIEW OF SYSTEMS CONSTITUTIONAL: Absent: fever, chills, diaphoresis, generalized weakness, malaise, loss of appetite, weight change HEENT: Absent: rhinorrhea, nasal congestion, throat pain, throat swelling, difficulty swallowing, mouth swelling, ear pain, eye pain, visual changes CARDIOVASCULAR: Absent: chest pain, syncope, palpitations, irregular heart rate, lightheadedness , peripheral edema RESPIRATORY: Absent: cough, shortness of breath, dyspnea with exertion, orthopnea, wheezing, stridor, hemoptysis GASTROINTESTINAL: Absent: abdominal pain, abdominal distension, nausea, vomiting, diarrhea, constipation, melena, hematochezia GENITOURINARY: Absent: dysuria, frequency, urgency, hesitancy, hematuria, flank pain, genital pain MUSCULOSKELETAL: Absent: myalgia, arthralgia, joint swelling, back pain, neck pain SKIN: Absent: rash, itching, pallor HEMATOLOGIC/IMMUNOLOGIC: Absent: easy bleeding, easy bruising, lymphadenopathy, frequent infections ENDOCRINE: Absent: unexplained weight gain, unexplained weight loss, heat intolerance, cold intolerance NEUROLOGIC: Absent: headache, focal weakness or paresthesias, dizziness, unsteady gait, seizure, mental status changes, bladder or bowel incontinence PHYSICAL EXAMINATION GENERAL: Awake, alert, and fully oriented, in no acute distress. HEAD: Normal with no signs of trauma. EYES: Pupils equal, round and reactive to light, sclera anicteric, conjunctiva clear. LUNGS: Breath sounds equal, clear to auscultation bilaterally. No wheezes, and no crackles. No accessory muscle use. HEART: Regular rate and rhythm, normal S1 and S2 ABDOMEN: Soft, nontender, not distended MUSCULOSKELETAL: Normal range of motion at all joints. No bony deformities or tenderness. No CVA tenderness. UPPER EXTREMITIES: 2+ pulses, warm, well-perfused. No cyanosis. No clubbing. No peripheral edema. LOWER EXTREMITIES: 2+ pulses, warm, well-perfused. No calf tenderness. No peripheral edema. NEUROLOGICAL: Cranial nerves II-XII intact. Normal speech. ASSESSMENT/PLAN: 87 year-old female with a PMH significant for HTN, HLD, CAD, heart failure, hypothyroidism, and major depressive disorder. Patient began ECT therapy in 2017. She presents today for ECT. Cardiac --Revised Cardiac Risk Index for Pre-Operative Risk: 0 points, 0.4% risk of major cardiac event Pulmonary --no pulmonary history Neurological --no neurological or neurosurgical history; no history of trauma Anesthesia --no reported problems with anesthesia ECT is a low risk procedure. The relative benefits of the planned procedure outweigh the relative risks for this patient at this time. Visit type - Emergency Visit Emergency Visit: No - New Patient This patient is new to me today: Yes Date on this admission: 10/31/18 - Critical Care Critical Care patient: No
[2018-10-31] MEDS ORDERED: KETAMINE HCL 500 MG/10 ML VIAL ONE (07:57)
[2018-10-31 09:29] VITALS: BMI 30.9
[2018-10-31 09:33] VITALS: TEMP 98.8
[2018-10-31 09:51] VITALS: BP 141/68
[2018-10-31 09:54] VITALS: PULSE 66
== END 2018-10-31 09:50 | disposition home or self-care (01) ==
LOC: FECT 05:39
PROVIDERS: ATTEND Psychiatry & Neurology Psychiatry
PROC: GZB4ZZZ Other Electroconvulsive Therapy (ICD-10-PCS; principal; 2018-10-31 07:15)
DX: F33.2 Major depressive disorder, recurrent severe without psychotic features (principal)
CPT/HCPCS: 90870; 94760

== ENCOUNTER 2018-11-28 05:35 | Day surgery (SDC) | payer OTHER | END 2018-11-28 13:45 | disposition home or self-care (01) | LOC: FECT 05:35 ==

== ENCOUNTER 2018-12-19 05:45 | Day surgery (SDC) | payer OTHER ==
[2018-12-19 08:22] VITALS: TEMP 98.5; BMI 32.8
--- NOTE | 2018-12-19 08:35 | HP ---
CHIEF COMPLAINT: Major Depressive Disorder PCP: Dr. Talavera [place] Primary Psych: Dr. Montgomery [phone] HISTORY OF PRESENT ILLNESS: 87 year-old female with a PMH significant for HTN, HLD, CAD, heart failure, hypothyroidism, and major depressive disorder. Patient began ECT therapy in 2017. She presents today for ECT. Recent Events: * seen in an emergency department about a month ago for dehydration, received IV fluids; cardiac workup done; doing well since PAST MEDICAL HISTORY: Hypertension Hyperlipidemia Coronary artery disease Diastolic heart failure Hypothyroidism Kidney stones PAST SURGICAL HISTORY: Appendectomy Allergies No Known Drug Allergies Allergy (Verified 11/28/18 07:26) HOME MEDICATIONS: Home Medications Medication Instructions Recorded Furosemide [Lasix -] 40 mg PO DAILY 03/03/17 Labetalol HCl 100 mg PO BID 03/03/17 Mirtazapine 15 mg PO HS 03/03/17 Rosuvastatin Calcium [Crestor] 5 mg PO DAILY 03/03/17 Aspirin Coated [Ecotrin -] 81 mg PO DAILY 11/10/17 Levothyroxine [Synthroid -] 25 mcg PO DAILY 11/10/17 Benazepril HCl 10 mg PO DAILY 12/19/18 Bupropion HCl [Bupropion Xl] 150 mg PO DAILY 12/19/18 REVIEW OF SYSTEMS CONSTITUTIONAL: Absent: fever, chills, diaphoresis, generalized weakness, malaise, loss of appetite, weight change HEENT: Absent: rhinorrhea, nasal congestion, throat pain, throat swelling, difficulty swallowing, mouth swelling, ear pain, eye pain, visual changes CARDIOVASCULAR: Absent: chest pain, syncope, palpitations, irregular heart rate, lightheadedness , peripheral edema RESPIRATORY: Absent: cough, shortness of breath, dyspnea with exertion, orthopnea, wheezing, stridor, hemoptysis GASTROINTESTINAL: Absent: abdominal pain, abdominal distension, nausea, vomiting, diarrhea, constipation, melena, hematochezia GENITOURINARY: Absent: dysuria, frequency, urgency, hesitancy, hematuria, flank pain, genital pain MUSCULOSKELETAL: Absent: myalgia, arthralgia, joint swelling, back pain, neck pain SKIN: Absent: rash, itching, pallor HEMATOLOGIC/IMMUNOLOGIC: Absent: easy bleeding, easy bruising, lymphadenopathy, frequent infections ENDOCRINE: Absent: unexplained weight gain, unexplained weight loss, heat intolerance, cold intolerance NEUROLOGIC: Absent: headache, focal weakness or paresthesias, dizziness, unsteady gait, seizure, mental status changes, bladder or bowel incontinence PHYSICAL EXAMINATION Vital Signs - 24 hr 12/19/18 08:15 Temperature 98.5 F Pulse Rate 65 Respiratory 16 Rate Blood Pressure 137/67 O2 Sat by Pulse 96 Oximetry (%) GENERAL: Awake, alert, and fully oriented, in no acute distress. HEAD: Normal with no signs of trauma. EYES: Pupils equal, round and reactive to light, sclera anicteric, conjunctiva clear. LUNGS: Breath sounds equal, clear to auscultation bilaterally. No wheezes, and no crackles. No accessory muscle use. HEART: Regular rate and rhythm, normal S1 and S2 ABDOMEN: Soft, nontender, not distended MUSCULOSKELETAL: Normal range of motion at all joints. No bony deformities or tenderness. No CVA tenderness. UPPER EXTREMITIES: 2+ pulses, warm, well-perfused. No cyanosis. No clubbing. No peripheral edema. LOWER EXTREMITIES: 2+ pulses, warm, well-perfused. No calf tenderness. Trace bilateral edema NEUROLOGICAL: Cranial nerves II-XII intact. Normal speech. ASSESSMENT/PLAN: 87 year-old female with a PMH significant for HTN, HLD, CAD, heart failure, hypothyroidism, and major depressive disorder. Patient began ECT therapy in 2017. She presents today for ECT. Cardiac --no cardiac history --Revised Cardiac Risk Index for Pre-Operative Risk: 2 points, 10.1% risk of major cardiac event Pulmonary --no pulmonary history Neurological --no neurological or neurosurgical history; no history of trauma Anesthesia --no reported problems with anesthesia ECT is a low risk procedure. The relative benefits of the planned procedure outweigh the relative risks for this patient at this time. Visit type - Emergency Visit Emergency Visit: No - New Patient This patient is new to me today: Yes Date on this admission: 12/19/18 - Critical Care Critical Care patient: No
[2018-12-19] MEDS ORDERED: KETAMINE HCL 500 MG/10 ML VIAL ONE (09:34)
[2018-12-19] MEDS ORDERED: ONDANSETRON 4 MG/2 ML VIAL IVPUSH PRN (09:54)
[2018-12-19] MEDS ORDERED: LACTATED RINGERS SOLUTION 1,000 ML IV SCH (10:00)
[2018-12-19 12:10] VITALS: BP 133/63; PULSE 70
== END 2018-12-19 11:20 | disposition home or self-care (01) ==
LOC: FECT 05:45
PROVIDERS: ATTEND Psychiatry & Neurology Psychiatry
PROC: GZB4ZZZ Other Electroconvulsive Therapy (ICD-10-PCS; principal; 2018-12-19 07:00)
DX: F32.9 Major depressive disorder, single episode, unspecified (principal)
CPT/HCPCS: 90870; 94760

== ENCOUNTER 2019-01-30 05:39 | Day surgery (SDC) | payer OTHER ==
--- NOTE | 2019-01-30 07:25 | HP ---
CHIEF COMPLAINT: Major Depressive Disorder PCP: Dr. Talavera [place] Primary Psych: Dr. Montgomery Cardiology: Dr. Moran, [place] [phone] HISTORY OF PRESENT ILLNESS: 87 year-old female with a PMH significant for HTN, HLD, CAD, heart failure, hypothyroidism, and major depressive disorder. Patient began ECT therapy in 2017. Recently hospitalized for one month at [place] for depression. She presents today for ECT. Recent Events: * hospitalized [place] from 12/22 --01/21/19 for acute exacerbation of depression received ECT 3 x per week under care of Dr. Montgomery; feeling much better PAST MEDICAL HISTORY: Hypertension Hyperlipidemia Coronary artery disease Diastolic heart failure Hypothyroidism Kidney stones PAST SURGICAL HISTORY: Appendectomy Allergies No Known Drug Allergies Allergy (Verified 01/03/19 17:46) Family history: non-contributory HOME MEDICATIONS: Home Medications Medication Instructions Recorded Furosemide [Lasix -] 40 mg PO DAILY 03/03/17 Labetalol HCl 200 mg PO BID 03/03/17 Mirtazapine 15 mg PO HS 03/03/17 Rosuvastatin Calcium [Crestor] 5 mg PO DAILY 03/03/17 Aspirin Coated [Ecotrin -] 81 mg PO DAILY 11/10/17 Levothyroxine [Synthroid -] 25 mcg PO DAILY 11/10/17 Benazepril HCl 10 mg PO DAILY 12/19/18 Bupropion HCl [Bupropion Xl] 150 mg PO DAILY 12/19/18 REVIEW OF SYSTEMS CONSTITUTIONAL: Absent: fever, chills, diaphoresis, generalized weakness, malaise, loss of appetite, weight change HEENT: Absent: rhinorrhea, nasal congestion, throat pain, throat swelling, difficulty swallowing, mouth swelling, ear pain, eye pain, visual changes CARDIOVASCULAR: Absent: chest pain, syncope, palpitations, irregular heart rate, lightheadedness , peripheral edema RESPIRATORY: Absent: cough, shortness of breath, dyspnea with exertion, orthopnea, wheezing, stridor, hemoptysis GASTROINTESTINAL: Absent: abdominal pain, abdominal distension, nausea, vomiting, diarrhea, constipation, melena, hematochezia GENITOURINARY: Absent: dysuria, frequency, urgency, hesitancy, hematuria, flank pain, genital pain MUSCULOSKELETAL: Absent: myalgia, arthralgia, joint swelling, back pain, neck pain SKIN: Absent: rash, itching, pallor HEMATOLOGIC/IMMUNOLOGIC: Absent: easy bleeding, easy bruising, lymphadenopathy, frequent infections ENDOCRINE: Absent: unexplained weight gain, unexplained weight loss, heat intolerance, cold intolerance NEUROLOGIC: Absent: headache, focal weakness or paresthesias, dizziness, unsteady gait, seizure, mental status changes, bladder or bowel incontinence PHYSICAL EXAMINATION GENERAL: Awake, alert, and fully oriented, in no acute distress. HEAD: Normal with no signs of trauma. EYES: Pupils equal, round and reactive to light, sclera anicteric, conjunctiva clear. LUNGS: Breath sounds equal, clear to auscultation bilaterally. No wheezes, and no crackles. No accessory muscle use. HEART: Regular rate and rhythm, normal S1 and S2 ABDOMEN: Soft, nontender, not distended MUSCULOSKELETAL: Normal range of motion at all joints. No bony deformities or tenderness. No CVA tenderness. UPPER EXTREMITIES: 2+ pulses, warm, well-perfused. No cyanosis. No clubbing. No peripheral edema. LOWER EXTREMITIES: 2+ pulses, warm, well-perfused. No calf tenderness. No peripheral edema. NEUROLOGICAL: Cranial nerves II-XII intact. Normal speech. ASSESSMENT/PLAN: 87 year-old female with a PMH significant for HTN, HLD, CAD, heart failure, hypothyroidism, and major depressive disorder. Patient began ECT therapy in 2017. She presents today for ECT. Cardiac --no cardiac history --Revised Cardiac Risk Index for Pre-Operative Risk: 0 points, 0.4% risk of major cardiac event Pulmonary --no pulmonary history Neurological --no neurological or neurosurgical history; no history of trauma Anesthesia --no reported problems with anesthesia ECT is a low risk procedure. The relative benefits of the planned procedure outweigh the relative risks for this patient at this time. Visit type - Emergency Visit Emergency Visit: No - New Patient This patient is new to me today: Yes Date on this admission: 01/31/19 - Critical Care Critical Care patient: No
[2019-01-30 07:32] VITALS: BMI 33.0
[2019-01-30] MEDS ORDERED: KETAMINE HCL 500 MG/10 ML VIAL ONE (08:16)
[2019-01-30 09:41] VITALS: TEMP 98
[2019-01-30 09:42] VITALS: BP 143/63; PULSE 69
== END 2019-01-30 10:00 | disposition home or self-care (01) ==
LOC: FECT 05:39 → FASU 05:39 → FECT 10:00
PROVIDERS: ATTEND Psychiatry & Neurology Psychiatry
PROC: GZB4ZZZ Other Electroconvulsive Therapy (ICD-10-PCS; principal; 2019-01-30 08:00)
DX: F33.2 Major depressive disorder, recurrent severe without psychotic features (principal)
CPT/HCPCS: 90870; 94760

== ENCOUNTER 2019-02-06 05:41 | Day surgery (SDC) | payer OTHER ==
[2019-02-06 07:15] VITALS: TEMP 97.8; BMI 33.0
[2019-02-06] MEDS ORDERED: KETAMINE HCL 500 MG/10 ML VIAL ONE (07:50)
[2019-02-06 09:50] VITALS: BP 160/78; PULSE 79
== END 2019-02-06 09:30 | disposition home or self-care (01) ==
LOC: FECT 05:41
PROVIDERS: ATTEND Psychiatry & Neurology Psychiatry
PROC: GZB4ZZZ Other Electroconvulsive Therapy (ICD-10-PCS; principal; 2019-02-06 07:15)
DX: F33.2 Major depressive disorder, recurrent severe without psychotic features (principal)
CPT/HCPCS: 90870; 94760

== ENCOUNTER 2019-02-13 05:38 | Day surgery (SDC) | payer OTHER ==
[2019-02-13 07:15] VITALS: TEMP 98; BMI 32.3
[2019-02-13] MEDS ORDERED: KETAMINE HCL 500 MG/10 ML VIAL ONE (08:23)
[2019-02-13 09:30] VITALS: PULSE 73
[2019-02-13 10:15] VITALS: BP 151/78
== END 2019-02-13 09:45 | disposition home or self-care (01) ==
LOC: FECT 05:38
PROVIDERS: ATTEND Psychiatry & Neurology Psychiatry
PROC: GZB4ZZZ Other Electroconvulsive Therapy (ICD-10-PCS; principal; 2019-02-13 07:00)
DX: F33.2 Major depressive disorder, recurrent severe without psychotic features (principal)
CPT/HCPCS: 90870; 94760

== ENCOUNTER 2019-02-22 05:40 | Day surgery (SDC) | payer OTHER ==
[2019-02-22 08:25] VITALS: BMI 32.3
[2019-02-22] MEDS ORDERED: KETAMINE HCL 500 MG/10 ML VIAL ONE (09:31)
[2019-02-22] MEDS ORDERED: ACETAMINOPHEN 325 MG TABLET (FP) PO PRN (10:11)
[2019-02-22] MEDS ORDERED: ONDANSETRON 4 MG/2 ML VIAL IVPUSH PRN (10:11)
[2019-02-22 10:54] VITALS: TEMP 98.6
[2019-02-22 11:00] VITALS: BP 104/52; PULSE 82
== END 2019-02-22 10:55 | disposition home or self-care (01) ==
LOC: FECT 05:40
PROVIDERS: ATTEND Psychiatry & Neurology Psychiatry
PROC: GZB4ZZZ Other Electroconvulsive Therapy (ICD-10-PCS; principal; 2019-02-22 07:15)
DX: F33.2 Major depressive disorder, recurrent severe without psychotic features (principal)
CPT/HCPCS: 90870; 94760

== ENCOUNTER 2019-03-06 05:39 | Day surgery (SDC) | payer OTHER ==
[2019-03-06 08:05] VITALS: BMI 32.3
[2019-03-06] MEDS ORDERED: KETAMINE HCL 500 MG/10 ML VIAL ONE (08:37)
[2019-03-06] MEDS ORDERED: ACETAMINOPHEN 325 MG TABLET (FP) PO PRN (09:06)
[2019-03-06 09:37] VITALS: TEMP 98.7
[2019-03-06 09:50] VITALS: BP 140/75; PULSE 79
--- NOTE | 2019-03-06 10:32 | HP ---
CHIEF COMPLAINT: Major Depressive Disorder PCP: Dr. Talavera [place] Primary Psych: Dr. Montgomery Cardiology: Dr. Moran, [place] [phone] HISTORY OF PRESENT ILLNESS: 87 year-old female with a PMH significant for HTN, HLD, CAD, heart failure, hypothyroidism, and major depressive disorder. Patient began ECT therapy in 2017. Recently hospitalized for one month at [place] for depression. She presents today for ECT. Recent Events: * none reported * PAST MEDICAL HISTORY: Hypertension Hyperlipidemia Coronary artery disease Diastolic heart failure Hypothyroidism Kidney stones PAST SURGICAL HISTORY: Appendectomy Allergies No Known Drug Allergies Allergy (Verified 01/03/19 17:46) HOME MEDICATIONS: Home Medications Medication Instructions Recorded Furosemide [Lasix -] 40 mg PO DAILY 03/03/17 Labetalol HCl 200 mg PO BID 03/03/17 Mirtazapine 30 mg PO HS 03/03/17 Rosuvastatin Calcium [Crestor] 5 mg PO DAILY 03/03/17 Aspirin Coated [Ecotrin -] 81 mg PO DAILY 11/10/17 Levothyroxine [Synthroid -] 25 mcg PO DAILY 11/10/17 Benazepril HCl 10 mg PO DAILY 12/19/18 Bupropion HCl [Bupropion Xl] 150 mg PO DAILY 12/19/18 Cholecalciferol (Vitamin D3) 1,500 unit PO DAILY 02/06/19 [Vitamin D3] Spironolactone [Aldactone] 25 mg PO DAILY 02/06/19 REVIEW OF SYSTEMS CONSTITUTIONAL: Absent: fever, chills, diaphoresis, generalized weakness, malaise, loss of appetite, weight change HEENT: Absent: rhinorrhea, nasal congestion, throat pain, throat swelling, difficulty swallowing, mouth swelling, ear pain, eye pain, visual changes CARDIOVASCULAR: Absent: chest pain, syncope, palpitations, irregular heart rate, lightheadedness , peripheral edema RESPIRATORY: Absent: cough, shortness of breath, dyspnea with exertion, orthopnea, wheezing, stridor, hemoptysis GASTROINTESTINAL: Absent: abdominal pain, abdominal distension, nausea, vomiting, diarrhea, constipation, melena, hematochezia GENITOURINARY: Absent: dysuria, frequency, urgency, hesitancy, hematuria, flank pain, genital pain MUSCULOSKELETAL: Absent: myalgia, arthralgia, joint swelling, back pain, neck pain SKIN: Absent: rash, itching, pallor HEMATOLOGIC/IMMUNOLOGIC: Absent: easy bleeding, easy bruising, lymphadenopathy, frequent infections ENDOCRINE: Absent: unexplained weight gain, unexplained weight loss, heat intolerance, cold intolerance NEUROLOGIC: Absent: headache, focal weakness or paresthesias, dizziness, unsteady gait, seizure, mental status changes, bladder or bowel incontinence PHYSICAL EXAMINATION Vital Signs - 24 hr 03/06/19 03/06/19 03/06/19 08:00 08:57 09:00 Temperature 98.3 F Pulse Rate 62 77 82 Respiratory 18 21 H 21 H Rate Blood Pressure 131/69 131/61 124/53 L O2 Sat by Pulse 93 L 100 100 Oximetry (%) 03/06/19 03/06/19 03/06/19 09:05 09:10 09:20 Temperature 98.7 F Pulse Rate 83 85 85 Respiratory 22 H 15 18 Rate Blood Pressure 139/61 140/58 L 131/64 O2 Sat by Pulse 100 981 H 95 Oximetry (%) 03/06/19 03/06/19 09:50 10:00 Temperature 98.7 F 98.7 F Pulse Rate 79 79 Respiratory 18 18 Rate Blood Pressure 140/75 140/75 O2 Sat by Pulse 95 Oximetry (%) GENERAL: Awake, alert, and fully oriented, in no acute distress. HEAD: Normal with no signs of trauma. EYES: Pupils equal, round and reactive to light, sclera anicteric, conjunctiva clear. LUNGS: Breath sounds equal, clear to auscultation bilaterally. No wheezes, and no crackles. No accessory muscle use. HEART: Regular rate and rhythm, normal S1 and S2 ABDOMEN: Soft, nontender, not distended MUSCULOSKELETAL: Normal range of motion at all joints. No bony deformities or tenderness. No CVA tenderness. UPPER EXTREMITIES: 2+ pulses, warm, well-perfused. No cyanosis. No clubbing. No peripheral edema. LOWER EXTREMITIES: 2+ pulses, warm, well-perfused. No calf tenderness. No peripheral edema. NEUROLOGICAL: Cranial nerves II-XII intact. Normal speech. ASSESSMENT/PLAN: 87 year-old female with a PMH significant for HTN, HLD, CAD, heart failure, hypothyroidism, and major depressive disorder. Patient began ECT therapy in 2016. She presents today for ECT. Cardiac --BP well-controlled --Revised Cardiac Risk Index for Pre-Operative Risk: 0 points, 0.4% risk of major cardiac event Pulmonary --no pulmonary history Neurological --no neurological or neurosurgical history; no history of trauma Anesthesia --no reported problems with anesthesia ECT is a low risk procedure. The relative benefits of the planned procedure outweigh the relative risks for this patient at this time. Visit type - Emergency Visit Emergency Visit: No - New Patient This patient is new to me today: Yes Date on this admission: 03/07/19 - Critical Care Critical Care patient: No
== END 2019-03-06 10:00 | disposition home or self-care (01) ==
LOC: FECT 05:39
PROVIDERS: ATTEND Psychiatry & Neurology Psychiatry
PROC: GZB4ZZZ Other Electroconvulsive Therapy (ICD-10-PCS; principal; 2019-03-06 07:00)
DX: F32.9 Major depressive disorder, single episode, unspecified (principal)
CPT/HCPCS: 90870; 94760

== ENCOUNTER 2019-03-20 07:05 | Day surgery (SDC) | payer OTHER ==
[2019-03-20 07:42] VITALS: TEMP 98; BMI 32.3
[2019-03-20 09:51] VITALS: BP 133/63; PULSE 75
== END 2019-03-20 09:55 | disposition home or self-care (01) ==
LOC: FECT 07:05
PROVIDERS: ATTEND Psychiatry & Neurology Psychiatry
PROC: GZB4ZZZ Other Electroconvulsive Therapy (ICD-10-PCS; principal; 2019-03-20 07:15)
DX: F32.9 Major depressive disorder, single episode, unspecified (principal)
CPT/HCPCS: 90870; 94760

== ENCOUNTER 2019-03-27 05:46 | Day surgery (SDC) | payer OTHER ==
[2019-03-27 07:45] VITALS: BMI 32.3
[2019-03-27] MEDS ORDERED: KETAMINE HCL 500 MG/10 ML VIAL ONE (08:20)
[2019-03-27 10:22] LABS: BASO % 0.9 % (0-2.0); EOS % 2.4 % (0-4.5); HEMATOCRIT 34.9 % (32.4-45.2); HEMOGLOBIN 12.1 GM/dl (10.7-15.3); LYMPH % 16.1 % (8-40); MCH 29.5 pg (25.7-33.7); MCHC 34.5 g/dl (32.0-36.0); MEAN CELL VOLUME 85.7 fl (80-96); MEAN PLT VOLUME 6.9 fl (7.5-11.1); MONO % 7.5 % (3.8-10.2); NEUT % 73.1 % (42.8-82.8); PLATELET COUNT 218 K/MM3 (134-434); RBC 4.08 M/mm3 (3.60-5.2); RDW 15.6 % (11.6-15.6); WHITE BLOOD COUNT 5.8 K/mm3 (4.0-10.8)
[2019-03-27 10:39] LABS: BILIRUBIN,TOTAL 1.1 mg/dl (0.2-1); CREATININE 0.8 mg/dl (0.55-1.3); MAGNESIUM 2.1 mg/dL (1.8-2.4); POTASSIUM 4.6 mmol/L (3.5-5.1); TOT PROT 6.3 g/dl (6.4-8.2)
[2019-03-27 10:40] VITALS: TEMP 98.3
[2019-03-27 10:42] VITALS: BP 147/79; PULSE 66
== END 2019-03-27 10:00 | disposition home or self-care (01) ==
LOC: FECT 05:46
PROVIDERS: ATTEND Psychiatry & Neurology Psychiatry
PROC: GZB4ZZZ Other Electroconvulsive Therapy (ICD-10-PCS; principal; 2019-03-27 07:45)
DX: F32.9 Major depressive disorder, single episode, unspecified (principal)
CPT/HCPCS: 36415; 80053; 83735; 85025; 90870; 94760

== ENCOUNTER 2019-04-24 05:43 | Day surgery (SDC) | payer OTHER ==
[2019-04-24 07:41] VITALS: TEMP 98.5; BMI 32.3
--- NOTE | 2019-04-24 07:55 | HP ---
CHIEF COMPLAINT: Major Depressive Disorder PCP: Dr. Talavera [place] Primary Psych: Dr. Montgomery Cardiology: Dr. Moran, [place] [phone] HISTORY OF PRESENT ILLNESS: 87 year-old female with a PMH significant for HTN, HLD, CAD, heart failure, hypothyroidism, and major depressive disorder. Patient began ECT therapy in 2017. Recently hospitalized for one month at [facility] for depression. She presents today for ECT. Recent Events: * none reported PAST MEDICAL HISTORY: Hypertension Hyperlipidemia Coronary artery disease Diastolic heart failure Hypothyroidism Kidney stones PAST SURGICAL HISTORY: Appendectomy Social History: Smoking: no Alcohol: no Drugs: no Allergies No Known Drug Allergies Allergy (Verified 01/03/19 17:46) HOME MEDICATIONS: Home Medications Medication Instructions Recorded Furosemide [Lasix -] 40 mg PO DAILY 03/03/17 Labetalol HCl 200 mg PO BID 03/03/17 Mirtazapine 30 mg PO HS 03/03/17 Rosuvastatin Calcium [Crestor] 5 mg PO HS 03/03/17 Aspirin Coated [Ecotrin -] 81 mg PO DAILY 11/10/17 Levothyroxine [Synthroid -] 25 mcg PO DAILY 11/10/17 Benazepril HCl 10 mg PO DAILY 12/19/18 Cholecalciferol (Vitamin D3) 1,500 unit PO DAILY 02/06/19 [Vitamin D3] Spironolactone [Aldactone] 25 mg PO DAILY 02/06/19 Sertraline HCl [Zoloft] 25 mg PO DAILY 04/24/19 REVIEW OF SYSTEMS CONSTITUTIONAL: Absent: fever, chills, diaphoresis, generalized weakness, malaise, loss of appetite, weight change HEENT: Absent: rhinorrhea, nasal congestion, throat pain, throat swelling, difficulty swallowing, mouth swelling, ear pain, eye pain, visual changes CARDIOVASCULAR: Absent: chest pain, syncope, palpitations, irregular heart rate, lightheadedness , peripheral edema RESPIRATORY: Absent: cough, shortness of breath, dyspnea with exertion, orthopnea, wheezing, stridor, hemoptysis GASTROINTESTINAL: Absent: abdominal pain, abdominal distension, nausea, vomiting, diarrhea, constipation, melena, hematochezia GENITOURINARY: Absent: dysuria, frequency, urgency, hesitancy, hematuria, flank pain, genital pain MUSCULOSKELETAL: Absent: myalgia, arthralgia, joint swelling, back pain, neck pain SKIN: Absent: rash, itching, pallor HEMATOLOGIC/IMMUNOLOGIC: Absent: easy bleeding, easy bruising, lymphadenopathy, frequent infections ENDOCRINE: Absent: unexplained weight gain, unexplained weight loss, heat intolerance, cold intolerance NEUROLOGIC: Absent: headache, focal weakness or paresthesias, dizziness, unsteady gait, seizure, mental status changes, bladder or bowel incontinence PHYSICAL EXAMINATION Vital Signs - 24 hr 04/24/19 07:38 Temperature 98.5 F Pulse Rate 59 L Respiratory 18 Rate Blood Pressure 143/56 L O2 Sat by Pulse 99 Oximetry (%) GENERAL: Awake, alert, and fully oriented, in no acute distress. HEAD: Normal with no signs of trauma. EYES: Pupils equal, round and reactive to light, sclera anicteric, conjunctiva clear. LUNGS: Breath sounds equal, clear to auscultation bilaterally. No wheezes, and no crackles. No accessory muscle use. HEART: Regular rate and rhythm, normal S1 and S2 ABDOMEN: Soft, nontender, not distended MUSCULOSKELETAL: Normal range of motion at all joints. No bony deformities or tenderness. No CVA tenderness. UPPER EXTREMITIES: 2+ pulses, warm, well-perfused. No cyanosis. No clubbing. No peripheral edema. LOWER EXTREMITIES: 2+ pulses, warm, well-perfused. No calf tenderness. No peripheral edema. NEUROLOGICAL: Cranial nerves II-XII intact. Normal speech. ASSESSMENT/PLAN: 87 year-old female with a PMH significant for HTN, HLD, CAD, heart failure, hypothyroidism, and major depressive disorder. Patient began ECT therapy in 2017. Recently hospitalized for one month at [facility] for depression. She presents today for ECT. Cardiac --Hypertension: BP controlled on current meds --Hyperlipidemia: on statin --Coronary artery disease: stable; on labetolol, ASA, benazepril, ECG reviewed --CHF: --Revised Cardiac Risk Index for Pre-Operative Risk: 0 points, 0.4% risk of major cardiac event Pulmonary --no pulmonary history Neurological --no neurological or neurosurgical history; no history of trauma Anesthesia --no reported problems with anesthesia ECT is a low risk procedure. The relative benefits of the planned procedure outweigh the relative risks for this patient at this time.
[2019-04-24] MEDS ORDERED: KETAMINE HCL 500 MG/10 ML VIAL ONE (08:07)
[2019-04-24 09:36] VITALS: BP 151/59; PULSE 69
== END 2019-04-24 09:45 | disposition home or self-care (01) ==
LOC: FECT 05:43
PROVIDERS: ATTEND Psychiatry & Neurology Psychiatry
PROC: GZB4ZZZ Other Electroconvulsive Therapy (ICD-10-PCS; principal; 2019-04-24 07:45)
DX: F32.9 Major depressive disorder, single episode, unspecified (principal)
CPT/HCPCS: 90870; 94760

== ENCOUNTER 2019-05-08 05:46 | Day surgery (SDC) | payer OTHER ==
[2019-04-30 13:06] VITALS: BMI 32.3
[2019-05-08] MEDS ORDERED: KETAMINE HCL 500 MG/10 ML VIAL ONE (08:00)
[2019-05-08 08:57] VITALS: PULSE 70; TEMP 98.5
[2019-05-08 09:21] VITALS: BP 144/74
== END 2019-05-08 09:10 | disposition home or self-care (01) ==
LOC: FECT 05:46
PROVIDERS: ATTEND Psychiatry & Neurology Psychiatry
PROC: GZB4ZZZ Other Electroconvulsive Therapy (ICD-10-PCS; principal; 2019-05-08 07:45)
DX: F33.2 Major depressive disorder, recurrent severe without psychotic features (principal)
CPT/HCPCS: 90870; 94760

== ENCOUNTER 2019-05-22 05:37 | Day surgery (SDC) | payer OTHER ==
[2019-05-10 11:37] VITALS: BMI 32.3
[2019-05-22 07:02] VITALS: TEMP 98.2
[2019-05-22] MEDS ORDERED: ONDANSETRON 4 MG/2 ML VIAL ONE (07:53)
[2019-05-22] MEDS ORDERED: KETAMINE HCL 500 MG/10 ML VIAL ONE (07:53)
[2019-05-22] MEDS ORDERED: LACTATED RINGERS SOLUTION 1,000 ML IV SCH (08:30)
[2019-05-22] MEDS ORDERED: ONDANSETRON 4 MG/2 ML VIAL IVPUSH PRN (08:30)
[2019-05-22 09:32] VITALS: BP 132/72; PULSE 71
== END 2019-05-22 09:35 | disposition home or self-care (01) ==
LOC: FECT 05:37
PROVIDERS: ATTEND Psychiatry & Neurology Psychiatry
PROC: GZB4ZZZ Other Electroconvulsive Therapy (ICD-10-PCS; principal; 2019-05-22 07:00)
DX: F33.2 Major depressive disorder, recurrent severe without psychotic features (principal)
CPT/HCPCS: 90870; 94760

== ENCOUNTER 2019-06-05 05:38 | Day surgery (SDC) | payer OTHER ==
[2019-06-05] MEDS ORDERED: ONDANSETRON 4 MG/2 ML VIAL IVPUSH PRN (06:59)
[2019-06-05] MEDS ORDERED: LACTATED RINGERS SOLUTION 1,000 ML IV SCH (07:00)
[2019-06-05 07:43] VITALS: BMI 32.3
[2019-06-05] MEDS ORDERED: KETAMINE HCL 500 MG/10 ML VIAL ONE (08:06)
--- NOTE | 2019-06-05 08:32 | HP ---
CHIEF COMPLAINT: Major Depressive Disorder PCP: Dr. Talavera [place] Primary Psych: Dr. Montgomery Cardiology: Dr. Moran, [place] [phone] HISTORY OF PRESENT ILLNESS: 87 year-old female with a PMH significant for HTN, HLD, CAD, heart failure, hypothyroidism, and major depressive disorder. Patient began ECT therapy in 2017. Recently hospitalized for one month at [place] for depression. She presents today for ECT. Recent Events: * none reported PAST MEDICAL HISTORY: Hypertension Hyperlipidemia Coronary artery disease Diastolic heart failure Hypothyroidism Kidney stones PAST SURGICAL HISTORY: Appendectomy Social History: Smoking: no Alcohol: no Drugs: no Allergies No Known Drug Allergies Allergy (Verified 05/10/19 11:34) HOME MEDICATIONS: Home Medications Medication Instructions Recorded Furosemide [Lasix -] 40 mg PO DAILY 03/03/17 Labetalol HCl 200 mg PO BID 03/03/17 Mirtazapine 30 mg PO HS 03/03/17 Rosuvastatin Calcium [Crestor] 5 mg PO HS 03/03/17 Aspirin Coated [Ecotrin -] 81 mg PO DAILY 11/10/17 Levothyroxine [Synthroid -] 25 mcg PO DAILY 11/10/17 Benazepril HCl 10 mg PO DAILY 12/19/18 Cholecalciferol (Vitamin D3) 1,500 unit PO DAILY 02/06/19 [Vitamin D3] Spironolactone [Aldactone] 25 mg PO DAILY 02/06/19 Sertraline HCl [Zoloft] 25 mg PO DAILY 04/24/19 REVIEW OF SYSTEMS CONSTITUTIONAL: Absent: fever, chills, diaphoresis, generalized weakness, malaise, loss of appetite, weight change HEENT: Absent: rhinorrhea, nasal congestion, throat pain, throat swelling, difficulty swallowing, mouth swelling, ear pain, eye pain, visual changes CARDIOVASCULAR: Absent: chest pain, syncope, palpitations, irregular heart rate, lightheadedness , peripheral edema RESPIRATORY: Absent: cough, shortness of breath, dyspnea with exertion, orthopnea, wheezing, stridor, hemoptysis GASTROINTESTINAL: Absent: abdominal pain, abdominal distension, nausea, vomiting, diarrhea, constipation, melena, hematochezia GENITOURINARY: Absent: dysuria, frequency, urgency, hesitancy, hematuria, flank pain, genital pain MUSCULOSKELETAL: Absent: myalgia, arthralgia, joint swelling, back pain, neck pain SKIN: Absent: rash, itching, pallor HEMATOLOGIC/IMMUNOLOGIC: Absent: easy bleeding, easy bruising, lymphadenopathy, frequent infections ENDOCRINE: Absent: unexplained weight gain, unexplained weight loss, heat intolerance, cold intolerance NEUROLOGIC: Absent: headache, focal weakness or paresthesias, dizziness, unsteady gait, seizure, mental status changes, bladder or bowel incontinence PHYSICAL EXAMINATION Vital Signs - 24 hr 06/05/19 07:35 Temperature 98.1 F Pulse Rate 61 Respiratory 16 Rate Blood Pressure 138/66 O2 Sat by Pulse 99 Oximetry (%) GENERAL: Awake, alert, and fully oriented, in no acute distress. HEAD: Normal with no signs of trauma. EYES: Pupils equal, round and reactive to light, sclera anicteric, conjunctiva clear. LUNGS: Breath sounds equal, clear to auscultation bilaterally. No wheezes, and no crackles. No accessory muscle use. HEART: Regular rate and rhythm, normal S1 and S2 ABDOMEN: Soft, nontender, not distended MUSCULOSKELETAL: Normal range of motion at all joints. No bony deformities or tenderness. No CVA tenderness. UPPER EXTREMITIES: 2+ pulses, warm, well-perfused. No cyanosis. No clubbing. No peripheral edema. LOWER EXTREMITIES: 2+ pulses, warm, well-perfused. No calf tenderness. No peripheral edema. NEUROLOGICAL: Cranial nerves II-XII intact. Normal speech. ASSESSMENT/PLAN: 87 year-old female with a PMH significant for HTN, HLD, CAD, heart failure, hypothyroidism, and major depressive disorder. Patient began ECT therapy in 2017. Recently hospitalized for one month at [place] for depression. She presents today for ECT. Cardiac --Hypertension: BP controlled on current meds --Hyperlipidemia: on statin --Coronary artery disease: stable; on labetolol, ASA, benazepril, ECG reviewed --CHF: stable --Revised Cardiac Risk Index for Pre-Operative Risk: 0 points, 0.4% risk of major cardiac event Pulmonary --no pulmonary history Neurological --no neurological or neurosurgical history; no history of trauma Anesthesia --no reported problems with anesthesia ECT is a low risk procedure. The relative benefits of the planned procedure outweigh the relative risks for this patient at this time. Visit type - Emergency Visit Emergency Visit: No - New Patient This patient is new to me today: Yes Date on this admission: 06/05/19 - Critical Care Critical Care patient: No
[2019-06-05 09:25] VITALS: TEMP 98.3
[2019-06-05 09:41] VITALS: BP 135/71; PULSE 69
== END 2019-06-05 09:50 | disposition home or self-care (01) ==
LOC: FECT 05:38
PROVIDERS: ATTEND Psychiatry & Neurology Psychiatry
PROC: GZB4ZZZ Other Electroconvulsive Therapy (ICD-10-PCS; principal; 2019-06-05 07:30)
DX: F32.9 Major depressive disorder, single episode, unspecified (principal)
CPT/HCPCS: 90870; 94760

== ENCOUNTER 2019-06-19 05:40 | Day surgery (SDC) | payer OTHER ==
[2019-06-19 07:12] VITALS: TEMP 98.1; BMI 32.1
[2019-06-19] MEDS ORDERED: KETAMINE HCL 500 MG/10 ML VIAL ONE (07:40)
[2019-06-19] MEDS ORDERED: ONDANSETRON 4 MG/2 ML VIAL IVPUSH PRN (08:49)
[2019-06-19] MEDS ORDERED: LACTATED RINGERS SOLUTION 1,000 ML IV SCH (09:00)
[2019-06-19 09:27] VITALS: BP 148/78; PULSE 68
== END 2019-06-19 09:20 | disposition home or self-care (01) ==
LOC: FECT 05:40
PROVIDERS: ATTEND Psychiatry & Neurology Psychiatry
PROC: GZB4ZZZ Other Electroconvulsive Therapy (ICD-10-PCS; principal; 2019-06-19 07:00)
DX: F33.2 Major depressive disorder, recurrent severe without psychotic features (principal)
CPT/HCPCS: 90870; 94760